=== PATIENT | female | born 1985 | race Caucasian/White ===

== ENCOUNTER → 2020-11-23 07:54 | Outpatient (BNVA) | payer OTHER, SELFPAY | PROVIDERS: PCP Family Medicine; Visit Provider Advanced Practice Midwife | DX: Z76.89 Persons encountering health services in other specified circumstances (principal) ==

== ENCOUNTER 2021-12-20 08:25 | Outpatient (REF) | payer OTHER, SELFPAY ==
[2021-12-27 19:56] LABS: HPV mRNA E6/E7 rflx Not Detected (Not Detected)
== END 2021-12-20 08:26 | disposition home or self-care (01) ==
LOC: HO.LAB 08:25
PROVIDERS: Visit Provider Advanced Practice Midwife
DX: Z12.4 Encounter for screening for malignant neoplasm of cervix (principal); Z11.51 Encounter for screening for human papillomavirus (HPV)
CPT/HCPCS: 87624; 88142

== ENCOUNTER 2022-01-03 10:46 | Outpatient (REF) | payer OTHER, SELFPAY ==
--- NOTE | ~2022-01-03 | MM_ITS ---
EXAMINATION: MM DIAGNOSTIC DIGITAL BREAST TOMOSYNTHESIS, BILATERAL US DIAGNOSTIC ULTRASOUND BREAST, BILATERAL CLINICAL INFORMATION: 36-year-old, no prior breast imaging. Asymptomatic. Clinical exam notes palpable areas right 6:00 and left 3:00. No known family history breast cancer. The lifetime risk of breast cancer based on the Tyrer-Cuzick Model is 10%. COMPARISON: None (current study represents initial baseline exam). TECHNIQUE: Digital breast tomosynthesis is performed in both the craniocaudal and mediolateral oblique views along with computer-aided detection (CAD). Synthesized 2D images are generated from the tomosynthesis. Ultrasound left breast is targeted to the outer quadrant. Ultrasound right breast is targeted to the lower quadrant. Skinner scale imaging and color Doppler are without and with harmonics. FINDINGS: The breasts are heterogeneously dense, which may obscure small masses (ACR BI-RADS breast composition Category c). There is fine fibronodular parenchymal pattern. There are no significant masses, abnormal calcifications, or other abnormalities. The axilla and skin contours are unremarkable. No skin thickening or coarsening of the Kiran's ligaments. Ultrasound left breast demonstrates a simple cyst 3:00 position 7 cm from nipple measuring approximately 1.0 x 0.5 cm. No additional findings left breast. Ultrasound right breast shows no cystic or solid mass or architectural abnormality. Results are discussed with the patient at time of visit. MM/MM tomosynthesis diagnostic BI IMPRESSION: 1. No mammographic evidence of malignancy. 2. Simple cyst left breast 3:00 position 1 cm. No ultrasound findings on right. ASSESSMENT: BI-RADS 2: Benign RECOMMENDATION: 1. Patient should be managed based on the clinical impression. If there is still clinically palpable concern, further evaluation may be considered with surgical consult. Decision to proceed with biopsy should be based on clinical grounds and degree of clinical concern. 2. Otherwise, routine annual screening mammography beginning age 40, or earlier as clinical risk factors warrant. This patient's information was entered into a reminder system with a target due date for their next mammogram.
== END 2022-01-03 10:47 | disposition home or self-care (01) ==
LOC: HO.MAMMO 10:46
PROVIDERS: PCP Family Medicine; Visit Provider Advanced Practice Midwife
DX: N63.15 Unspecified lump in the right breast, overlapping quadrants (principal); N63.25 Unspecified lump in the left breast, overlapping quadrants
CPT/HCPCS: 76642; 77062; 77066

== ENCOUNTER 2022-01-25 10:08 | Outpatient (REF) | payer OTHER, SELFPAY ==
[2022-01-25 11:43] LABS: Alanine Aminotransferase 12 U/L (0-31); Albumin Level 4.3 g/dL (3.5-5.0); Alkaline Phosphatase 69 U/L (39-117); Anion Gap 13 (12-20); Aspartate Amino Transferase 16 U/L (5-31); Bilirubin Total 0.7 mg/dL (0.0-1.0); Blood Urea Nitrogen 14 mg/dL (9-16); Calcium 9.6 mg/dL (8.4-10.2); Carbon Dioxide 28 mmol/L (22-29); Chloride 102 mmol/L (96-108); Cholesterol 242 mg/dL; Estimated Glomerular Filt Rate > 60; Glucose Random 88 mg/dL (60-115); HDL Cholesterol 75 mg/dL; LDL Cholesterol Calculated 152 mg/dl; Potassium 4.5 mmol/L (3.3-5.1); Sodium 138 mmol/L (135-145); Total Protein 7.5 g/dL (6.5-8.0); Triglycerides 78 mg/dL
[2022-01-25 12:43] LABS: Creatinine Urine 91.39 mg/dL; Microalbumin Urine < 5.0 mg/L
== END 2022-01-25 10:09 | disposition home or self-care (01) ==
LOC: HO.LAB 10:08
PROVIDERS: PCP Family Medicine; Visit Provider Family Medicine
DX: R03.0 Elevated blood-pressure reading, without diagnosis of hypertension (principal)
CPT/HCPCS: 36415; 80053; 80061; 82043

== ENCOUNTER 2022-02-08 14:59 | Outpatient (REF) | payer OTHER, SELFPAY ==
[2022-02-08 15:27] LABS: COVID-19 Test Negative (Negative); IDNOW Serial# 08D9AD1C
== END 2022-02-08 15:00 | disposition home or self-care (01) ==
LOC: HO.LAB 14:59
PROVIDERS: PCP Family Medicine; Visit Provider Internal Medicine
DX: Z20.822 Contact with and (suspected) exposure to COVID-19 (principal)
CPT/HCPCS: 87635; C9803

== ENCOUNTER 2022-02-12 11:14 | Outpatient (REF) | payer OTHER, SELFPAY ==
[2022-02-12 11:39] LABS: COVID-19 Test Positive (Negative)
== END 2022-02-12 11:15 | disposition home or self-care (01) ==
LOC: HO.LAB 11:14
PROVIDERS: Visit Provider Internal Medicine
DX: Z20.822 Contact with and (suspected) exposure to COVID-19 (principal)
CPT/HCPCS: 87635; C9803

== ENCOUNTER 2022-03-04 12:58 | Emergency (ER) | payer OTHER, SELFPAY ==
--- NOTE | 2022-03-04 | ECG_ITS ---
Test Reason : CHEST PAIN Blood Pressure : / mmHG Vent. Rate : 094 BPM Atrial Rate : 094 BPM P-R Int : 144 ms QRS Dur : 074 ms QT Int : 350 ms P-R-T Axes : 060 017 017 degrees QTc Int : 437 ms Normal sinus rhythm Normal ECG When compared with ECG of 11-OCT-2016 14:00, Vent. rate has increased BY 37 BPM Referred By: Generic ED Physician Electronically Signed By:SIDNEY RODRIGUEZ MD
--- NOTE | ~2022-03-04 | XR_ITS ---
EXAMINATION: XR CHEST CLINICAL INFORMATION: SOB, chest pain COMPARISON: None TECHNIQUE: 2 views of the chest were obtained. FINDINGS: No significant abnormality is noted involving the heart, lungs, mediastinum, bony thorax or soft tissues. XR/XR chest 2V IMPRESSION: Unremarkable chest examination.
[2022-03-04 14:15] VITALS: BP 150/98; PULSE 87; RESP 18; TEMP 36.6; O2SAT 100; BMI 25.0
--- NOTE | 2022-03-04 14:25 | ED_ITS ---
HPI - Chest Pain General Chief Complaint: Chest Pain Stated Complaint: sob,chest pain Time Seen by Provider: 03/04/22 14:04 Source: patient Mode of arrival: ambulatory Limitations: no limitations History of Present Illness HPI narrative: 37-year-old female with no significant medical problems who had COVID-[address] [facility] presents to the ER with ongoing chest pains, shortness of breath, nausea, lightheaded and dizziness. She reports when she had COVID she was home with extreme fatigue, shortness of breath, generally not feeling well. She has not fully recovered or felt better since. 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 She has been slowly trying to increase her stamina and been going for slow walks but 3 days ago when she was walking she had worsening chest pains and shortness of breath. She is anxious and tearful reporting concerns that she is never going to fully recover feel better from COVID. She reports she was vaccinated with 2 of the Pfizer vaccines. She is not vaccinated for influenza but has had no known sick contacts in the last couple of weeks. She denies any personal or family history of blood clots. She is not on control pills. MD complaint: chest pain and chest heaviness Onset (ago): week(s) Timing of current episode: episodic Prior episodes: Yes Onset: during exertion Pain location: substernal Severity: moderate Quality: aching and heaviness Relieving factors: rest Exacerbating factors: exertion and inspiration Context: recent illness Associated symptoms: nausea and dyspnea Treatment prior to arrival: none Risk Factors Coronary artery disease risk factors: none Related Data On Oral Contraceptives: No Home Medications Medication Instructions Recorded Confirmed lorazepam 0.5 mg tablet 0.5 mg PO BID PRN 11/23/20 12/20/21 Previous Rx's Medication Instructions Recorded etonogestrel 0.12 mg-ethinyl 1 vag ring VAGINAL Q4W #3 ea 12/20/21 estradiol 0.015 mg/24 hr vaginal ring (NuvaRing) fluconazole 150 mg tablet 150 mg PO ONCE 1 Days #1 tab 12/24/21 (Diflucan) albuterol sulfate 90 mcg/actuation 2 puff INHALATION QID PRN #6.7 g 03/04/22 aerosol inhaler (ProAir HFA) Allergies Allergy/AdvReac Type Severity Reaction Status Date / Time No Known Allergies Allergy Verified 12/20/21 08:29 Review of Systems Review of Systems: Constitutional: No Fever, No Chills ENT/Mouth: No sore throat, No Rhinorrhea, No Swallowing Difficulty Eyes: No Eye Pain, No Swelling, No Redness Cardiovascular: + Chest Pain, + SOB, No Orthopnea, No Edema Respiratory: No Cough, No Sputum, No Wheezing, + dyspnea Gastrointestinal: No Nausea, No Vomiting, No Diarrhea, No abdominal Pain, No Hematochezia, No Melena Genitourinary: No Dysuria, No Urinary Frequency, No Hematuria Musculoskeletal: No joint pain, + Myalgias Skin: No Skin Lesions, No rash Neuro: No Weakness, No Numbness, + Dizziness, + Headache Psych: + Anxiety/Panic, No Depression Heme/Lymph: No Bruising, No Lymphadenopathy Endocrine: No Polyuria, No Polydipsia PMFSH Past Medical History Attestation statement: The following information was validated with the patient. Medical History Allergic rhinitis Headache HTN (hypertension) Surgical History Hx of section Family History Family History Father HTN (hypertension) Mother HTN (hypertension) Hyperlipemia Maternal Grandmother CVD (cardiovascular disease) Maternal Grandfather Stroke Social History Social History Alcohol intake: current Alcohol intake frequency: holidays/special occasions only Patient Tobacco Use Status: Never used Tobacco Use of substances other than those prescribed or required for medical reasons: No Advance Directives: No Advance Directives Information Provided: No Patient : No Gender identity: Female Physical Exam Vital Signs: Vital Signs: Last Vital Signs Temp 98 F 03/04/22 14:15 Pulse 87 03/04/22 14:15 Resp 18 03/04/22 14:15 BP 150/98 H 03/04/22 14:15 Pulse Ox 100 03/04/22 14:15 BMI result Body Mass Index 25.0 Appearance: Alert. Oriented X3. Tearful and anxious. Eyes: Pupils equal, round and reactive to light. ENT: Pharynx normal. Neck: Normal inspection. Neck supple. CVS: Tachycardic, regular rhythm. Pulses normal. Respiratory: No respiratory distress. Breath sounds normal. Abdomen: Soft and nontender. +BS x4 Skin: Skin warm and dry. Normal skin color. Normal skin turgor. No rashes. Extremities: No lower extremity edema. No calf tenderness. Neuro: Oriented X 3. No motor deficit. No sensory deficit. Grossly normal, nonfocal Course Course Course Narrative: 37-year-old female with history of recent COVID-19 at the end of January who presents to the ER with ongoing shortness of breath and chest pains. HR 90-100 but she is anxious and tearful. HR 80 when more calm. Concern for possible PE although only risk factor is prior COVID. Will check D-dimer, EKG, troponin, and two view chest x-ray. Her lungs are clear and and her oxygen saturation is 100%. Reevaluation(s) Reevaluation #1: DDIMER negative, Troponin negative, normal BNP. Doubt PE. Case d/w Dr. Connor who also agrees very low probability of PE and will hold off on CTA at this time. CXR is clear. Will give a dose of toradol and reassess. Reevaluation #2: Pain is the same. SpO2 100%, HR 80's. At this time patient is stable for discharge from the ED. She would like to be referred to Cardiology for possible stress test. She will also follow up with her PCP. Return precautions discussed. MDM - Chest Pain Medical Records Data Attestation: I reviewed the patient's medical records. Lab Data Attestation: I reviewed the patient's lab results. Result diagrams: 03/04/22 14:47 03/04/22 15:49 Labs: Lab Results 03/04/22 03/04/22 03/04/22 Range/Units 14:34 14:47 14:47 WBC 9.6 (4.8-10.8) X10*3/uL RBC 4.28 (4.20-5.50) X10*6/uL Hgb 12.6 (12.0-16.0) g/dl Hct 38.3 (37.0-47.0) % MCV 89.5 (80.0-98.0) fL MCH 29.4 (27.0-33.0) pg MCHC 32.9 (31.0-35.0) g/dl RDW 11.7 (11.0-16.0) % Plt Count 168 (160-400) X10*3/uL MPV 11.0 (9.4-12.3) fL Immature Gran % (Auto) 0.3 (0.0-0.4) % Neut % (Auto) 81.4 H (45-73) % Lymph % (Auto) 12.4 L (20-40) % Hendricks % (Auto) 3.5 (2-11) % Eos % (Auto) 2.3 (0-4) % Baso % (Auto) 0.1 (0-2) % Lymph # (Auto) 1.2 (1.2-4.9) X10*3/uL Hendricks # (Auto) 0.3 (0.1-1.2) X10*3/uL Eos # (Auto) 0.2 (0.0-0.4) X10*3/uL Baso # (Auto) 0.0 (0.0-0.2) X10*3/uL Abs Immat Gran (auto) 0.03 (0.00-0.03) X10*3/uL Absolute Neuts (auto) 7.8 (2.0-8.3) x10*3/uL Absolute Nucleated RBC 0.000 (0.0-0.012) X10*3/uL Nucleated RBC % (auto) 0.0 (0.0-0.2) /100WBC ESR 5 (0-20) MM/HR PT (9.9-13.0) SEC INR (0.9-1.1) APTT (24.1-38.0) SEC D-Dimer High Sensitivty NG/ML Sodium (135-145) mmol/L Potassium (3.3-5.1) mmol/L Chloride (96-108) mmol/L Carbon Dioxide (22-29) mmol/L Anion Gap (12-20) BUN (9-16) mg/dL Creatinine (0.5-1.4) mg/dL Estim Creat Clear Calc Estimated GFR Random Glucose (60-115) mg/dL Calcium (8.4-10.2) mg/dL Magnesium (1.6-2.6) mg/dL Total Bilirubin (0.0-1.0) mg/dL Direct Bilirubin (0.0-0.5) mg/dL AST (5-31) U/L ALT (0-31) U/L Alkaline Phosphatase (39-117) U/L Troponin I High Sens (<3.5-17.0) ng/L C-Reactive Protein (< or = 0.50) mg/dL B-Natriuretic Peptide (<100) pg/mL Total Protein (6.5-8.0) g/dL Albumin (3.5-5.0) g/dL Influenza Type A (AUDELIA) Negative (Negative) Influenza Type B (AUDELIA) Negative (Negative) Influenza A & B Note See Note 03/04/22 03/04/22 03/04/22 Range/Units 14:47 14:47 14:47 WBC (4.8-10.8) X10*3/uL RBC (4.20-5.50) X10*6/uL Hgb (12.0-16.0) g/dl Hct (37.0-47.0) % MCV (80.0-98.0) fL MCH (27.0-33.0) pg MCHC (31.0-35.0) g/dl RDW (11.0-16.0) % Plt Count (160-400) X10*3/uL MPV (9.4-12.3) fL Immature Gran % (Auto) (0.0-0.4) % Neut % (Auto) (45-73) % Lymph % (Auto) (20-40) % Hendricks % (Auto) (2-11) % Eos % (Auto) (0-4) % Baso % (Auto) (0-2) % Lymph # (Auto) (1.2-4.9) X10*3/uL Hendricks # (Auto) (0.1-1.2) X10*3/uL Eos # (Auto) (0.0-0.4) X10*3/uL Baso # (Auto) (0.0-0.2) X10*3/uL Abs Immat Gran (auto) (0.00-0.03) X10*3/uL Absolute Neuts (auto) (2.0-8.3) x10*3/uL Absolute Nucleated RBC (0.0-0.012) X10*3/uL Nucleated RBC % (auto) (0.0-0.2) /100WBC ESR (0-20) MM/HR PT 10.8 (9.9-13.0) SEC INR 1.0 (0.9-1.1) APTT 30.1 (24.1-38.0) SEC D-Dimer High Sensitivty < 150 NG/ML Sodium (135-145) mmol/L Potassium (3.3-5.1) mmol/L Chloride (96-108) mmol/L Carbon Dioxide (22-29) mmol/L Anion Gap (12-20) BUN (9-16) mg/dL Creatinine (0.5-1.4) mg/dL Estim Creat Clear Calc Estimated GFR Random Glucose (60-115) mg/dL Calcium (8.4-10.2) mg/dL Magnesium (1.6-2.6) mg/dL Total Bilirubin (0.0-1.0) mg/dL Direct Bilirubin (0.0-0.5) mg/dL AST (5-31) U/L ALT (0-31) U/L Alkaline Phosphatase (39-117) U/L Troponin I High Sens < 3.5 (<3.5-17.0) ng/L C-Reactive Protein (< or = 0.50) mg/dL B-Natriuretic Peptide 47 (<100) pg/mL Total Protein (6.5-8.0) g/dL Albumin (3.5-5.0) g/dL Influenza Type A (AUDELIA) (Negative) Influenza Type B (AUDELIA) (Negative) Influenza A & B Note 03/04/22 Range/Units 15:49 WBC (4.8-10.8) X10*3/uL RBC (4.20-5.50) X10*6/uL Hgb (12.0-16.0) g/dl Hct (37.0-47.0) % MCV (80.0-98.0) fL MCH (27.0-33.0) pg MCHC (31.0-35.0) g/dl RDW (11.0-16.0) % Plt Count (160-400) X10*3/uL MPV (9.4-12.3) fL Immature Gran % (Auto) (0.0-0.4) % Neut % (Auto) (45-73) % Lymph % (Auto) (20-40) % Hendricks % (Auto) (2-11) % Eos % (Auto) (0-4) % Baso % (Auto) (0-2) % Lymph # (Auto) (1.2-4.9) X10*3/uL Hendricks # (Auto) (0.1-1.2) X10*3/uL Eos # (Auto) (0.0-0.4) X10*3/uL Baso # (Auto) (0.0-0.2) X10*3/uL Abs Immat Gran (auto) (0.00-0.03) X10*3/uL Absolute Neuts (auto) (2.0-8.3) x10*3/uL Absolute Nucleated RBC (0.0-0.012) X10*3/uL Nucleated RBC % (auto) (0.0-0.2) /100WBC ESR (0-20) MM/HR PT (9.9-13.0) SEC INR (0.9-1.1) APTT (24.1-38.0) SEC D-Dimer High Sensitivty NG/ML Sodium 138 (135-145) mmol/L Potassium 4.0 (3.3-5.1) mmol/L Chloride 107 (96-108) mmol/L Carbon Dioxide 21 L (22-29) mmol/L Anion Gap 14 (12-20) BUN 17 H (9-16) mg/dL Creatinine 0.69 (0.5-1.4) mg/dL Estim Creat Clear Calc 107.4 Estimated GFR > 60 Random Glucose 71 (60-115) mg/dL Calcium 8.7 D (8.4-10.2) mg/dL Magnesium 1.5 L (1.6-2.6) mg/dL Total Bilirubin 0.6 (0.0-1.0) mg/dL Direct Bilirubin 0.2 (0.0-0.5) mg/dL AST 12 (5-31) U/L ALT 10 (0-31) U/L Alkaline Phosphatase 63 (39-117) U/L Troponin I High Sens (<3.5-17.0) ng/L C-Reactive Protein 0.54 H (< or = 0.50) mg/dL B-Natriuretic Peptide (<100) pg/mL Total Protein 6.5 (6.5-8.0) g/dL Albumin 3.8 (3.5-5.0) g/dL Influenza Type A (AUDELIA) (Negative) Influenza Type B (AUDELIA) (Negative) Influenza A & B Note ECG Data ECG #1: Attestation: I personally reviewed and interpreted this ECG as follows: ECG interpretation date: 03/04/22 ECG interpretation time: 14:29 Prior ECG tracings: available for review Interpretation: Normal sinus rhythm, heart rate 94 beats per minute, normal NH interval, normal QTC, normal EKG. Critical Care Time Critical Care Time Critical Care Time: No Discharge Plan Discharge Clinical Impression: Atypical chest pain, Persistent shortness of breath after COVID-19 Patient Disposition: Home, Self-Care Additional Instructions: Your lab workup today was normal. You are negative for Influenza. Your EKG was normal. For cardiac enzyme was undetectable, making any cardiac cause of your chest pain extremely unlikely. Your chest x-ray was clear. Use the prescribed inhaler as directed before exercise to see if this helps with your breathing. Recommend continuing to increase your aerobic exercise and physical activity slowly and only as tolerated. Recommend following up with your primary care provider for further evaluation treatment. If you develop new or worsening symptoms call 911 or come back to the ER for further evaluation. Prescriptions: New albuterol sulfate [ProAir HFA] 90 mcg/actuation HFA aerosol inhaler 2 puff inhalation QID PRN (Reason: shortness of breath or wheezing) Qty: 6.7 0RF No Action fluconazole [Diflucan] 150 mg tablet 150 mg PO ONCE 1 Days Qty: 1 0RF lorazepam 0.5 mg tablet 0.5 mg PO BID PRN (Reason: headache) 0RF etonogestrel-ethinyl estradiol [NuvaRing] 0.12-0.015 mg/24 hr ring 1 vag ring vaginal Q4W Qty: 3 4RF Rx Instructions: leave in place for 3 weeks of a 4-week cycle. Referrals: Teddy Sotelo MD [Physician] - 1 week (Chest pain & shortness of breath s/p COVID)
[2022-03-04 14:54] LABS: MANUAL DIFF FLAG NO
[2022-03-04 14:56] LABS: Basophils Percent Auto 0.1 % (0-2); Eosinophils Absolute Auto 0.2 X10*3/uL (0.0-0.4); Eosinophils Percent Auto 2.3 % (0-4); Hematocrit 38.3 % (37.0-47.0); Hemoglobin 12.6 g/dl (12.0-16.0); Imm Gran Abs Auto 0.03 X10*3/uL (0.00-0.03); Imm Gran Pct Auto 0.3 % (0.0-0.4); Lymphocytes Absolute Auto 1.2 X10*3/uL (1.2-4.9); Lymphocytes Percent Auto 12.4 % (20-40); Mean Corpuscular HGB Conc 32.9 g/dl (31.0-35.0); Mean Corpuscular Hemoglobin 29.4 pg (27.0-33.0); Mean Corpuscular Volume 89.5 fL (80.0-98.0); Monocytes Absolute Auto 0.3 X10*3/uL (0.1-1.2); Monocytes Percent Auto 3.5 % (2-11); Neutrophils Absolute Auto 7.8 x10*3/uL (2.0-8.3); Neutrophils Percent Auto 81.4 % (45-73); Platelet Count 168 X10*3/uL (160-400); Red Blood Count 4.28 X10*6/uL (4.20-5.50); Red Cell Distribution Width 11.7 % (11.0-16.0); White Blood Count 9.6 X10*3/uL (4.8-10.8)
[2022-03-04 14:58] LABS: Influenza A Negative (Negative); Influenza B2 Negative (Negative)
[2022-03-04 15:05] LABS: Prothrombin Time 10.8 SEC (9.9-13.0)
[2022-03-04 15:08] LABS: D Dimer High Sensitivity < 150 NG/ML; Partial Thromboplastin Time 30.1 SEC (24.1-38.0)
[2022-03-04 15:17] LABS: B Type Natriuretic Peptide 47 pg/mL (<100); Troponin-I High Sensitivity < 3.5 ng/L (<3.5-17.0)
[2022-03-04 15:35] LABS: Erythrocyte Sedimentation Rate 5 MM/HR (0-20)
[2022-03-04 16:14] LABS: Alanine Aminotransferase 10 U/L (0-31); Albumin Level 3.8 g/dL (3.5-5.0); Alkaline Phosphatase 63 U/L (39-117); Anion Gap 14 (12-20); Aspartate Amino Transferase 12 U/L (5-31); Bilirubin Direct 0.2 mg/dL (0.0-0.5); Bilirubin Total 0.6 mg/dL (0.0-1.0); Blood Urea Nitrogen 17 mg/dL (9-16); C Reactive Protein 0.54 mg/dL (< or = 0.50); Calcium 8.7 mg/dL (8.4-10.2); Carbon Dioxide 21 mmol/L (22-29); Chloride 107 mmol/L (96-108); Creatinine Clr Calc Pharmacy 107.4; Estimated Glomerular Filt Rate > 60; Glucose Random 71 mg/dL (60-115); Magnesium 1.5 mg/dL (1.6-2.6); Sodium 138 mmol/L (135-145); Total Protein 6.5 g/dL (6.5-8.0)
[2022-03-04] MEDS: Ketorolac Tromethamine 30 MG/ML VIAL IVPUSH (16:43)
[2022-03-04 17:19] VITALS: BP 141/88; PULSE 90; RESP 14; TEMP 37.1; O2SAT 99
== END 2022-03-04 17:42 | disposition home or self-care (01) ==
PROVIDERS: Physician Assistant; Emergency Provider Emergency Medicine; PCP Family Medicine
DX: R07.89 Other chest pain (principal); R06.02 Shortness of breath; R42 Dizziness and giddiness; F41.9 Anxiety disorder, unspecified; Z79.899 Other long term (current) drug therapy
CPT/HCPCS: 36415; 71046; 80048; 80076; 83735; 83880; 84484; 85025; 85379; 85610; 85652; 85730; 86140; 87502; 93005; 96374; 99284; J1885

== ENCOUNTER 2022-03-09 08:46 | Emergency (ER) | payer OTHER, SELFPAY ==
--- NOTE | 2022-03-09 | ECG_ITS ---
Test Reason : CHES PAIN Blood Pressure : / mmHG Vent. Rate : 081 BPM Atrial Rate : 081 BPM P-R Int : 106 ms QRS Dur : 068 ms QT Int : 354 ms P-R-T Axes : 016 028 024 degrees QTc Int : 411 ms Sinus rhythm with short W[place] Septal infarct , age undetermined Abnormal ECG When compared with ECG of 04-MAR-2022 13:15, No significant change was found Referred By: Generic ED Physician Electronically Signed By:SIDNEY RODRIGUEZ MD
--- NOTE | ~2022-03-09 | CT_ITS ---
EXAMINATION: CT ANGIOGRAM OF THE CHEST WITH AND WITHOUT CONTRAST (CT PULMONARY ANGIOGRAM FOR PE) CLINICAL INFORMATION: Reason for Exam r/o pe COMPARISON: Previous chest x-ray from earlier this month TECHNIQUE: Prior to contrast administration, noncontrast localization images were obtained. Subsequently, multidetector volumetric imaging was performed from the thoracic inlet to below the diaphragms following the administration of 65 mL Omnipaque 350 intravenous contrast. No contrast reaction reported Sagittal, coronal, and MIP oblique sagittal reformatted images were obtained on the CT workstation, uploaded to PACS, and reviewed. This CT examination was performed using dose optimization techniques as appropriate, variously including the following: *Automated exposure control *Adjustment of mA and/or kV according to patient size (this includes techniques or standardized protocols for targeted exams where dose is matched to indication/reason for exam; i.e. extremities or head) *Use of iterative reconstruction technique Total exam dose-length product 295 mGy-cm FINDINGS: QUALITY OF STUDY/CONTRAST BOLUS: Satisfactory. PULMONARY ARTERIES: No central or segmental pulmonary emboli. THORACIC AORTA: No aneurysm or dissection. LUNG: There is question of a 2 mm left lower lobe nodule axial image 252 series 7. The lungs are otherwise clear. PLEURA: No pleural effusion or pneumothorax. MEDIASTINUM: Normal heart size. No pericardial effusion. No hilar or mediastinal lymphadenopathy. No evidence of septal bowing or right heart strain. CHEST WALL/AXILLA: No axillary or internal mammary lymphadenopathy. OSSEOUS STRUCTURES: No acute or suspicious osseous abnormality. UPPER ABDOMEN: Unremarkable. No reflux of contrast into the hepatic veins to suggest elevated right heart pressures. CT/CT angio chest PE protocol IMPRESSION: No evidence of pulmonary embolism. Question 2 mm left lower lobe pulmonary nodule. VTE: negative
[2022-03-09 08:51] VITALS: BP 129/94; PULSE 89; RESP 18; TEMP 36.2; O2SAT 100; BMI 25.0
[2022-03-09 09:20] VITALS: BP 138/87; PULSE 82; RESP 16; TEMP 37.2; O2SAT 99
--- NOTE | 2022-03-09 09:24 | ED.CHESTPAIN ---
HPI - Chest Pain General Chief Complaint: Chest Pain Stated Complaint: Chest pain/SOB Time Seen by Provider: 03/09/22 09:24 Source: patient Mode of arrival: ambulatory Limitations: no limitations History of Present Illness HPI narrative: this is 37 years old female presented to the ED with chest pain and shortness of breath, she was evaluated on Friday with negative workup. She states this seems that she had the COVID and a margin she has been complaining on chest pain like a pressure in feeling short of breath denies any fever chills exertional symptoms. MD complaint: chest pain Onset (ago): week(s) (4) Timing of current episode: constant Onset: during rest Pain location: substernal Pain radiation: none Severity: moderate Quality: heaviness Relieving factors: nothing Exacerbating factors: nothing Risk Factors Coronary artery disease risk factors: none Thoracic aortic dissection risk factors: none Related Data Home Medications Medication Instructions Recorded Confirmed lorazepam 0.5 mg tablet 0.5 mg PO BID PRN 11/23/20 12/20/21 Previous Rx's Medication Instructions Recorded etonogestrel 0.12 mg-ethinyl 1 vag ring VAGINAL Q4W #3 ea 12/20/21 estradiol 0.015 mg/24 hr vaginal ring (NuvaRing) fluconazole 150 mg tablet 150 mg PO ONCE 1 Days #1 tab 12/24/21 (Diflucan) albuterol sulfate 90 mcg/actuation 2 puff INHALATION QID PRN #6.7 g 03/04/22 aerosol inhaler (ProAir HFA) Allergies Allergy/AdvReac Type Severity Reaction Status Date / Time No Known Allergies Allergy Verified 12/20/21 08:29 Review of Systems Review of Systems: Yes all other systems are reviewed and are negative Constitutional: Constitutional: Reports no additional constitutional complaints Eyes: Eyes: Reports no additional eye complaints ENT: Reports system reviewed and no additional complaints, except as documented Cardiovascular: Cardiovascular: Reports no additional cardiovascular complaints Respiratory: Respiratory: Reports no additional respiratory complaints Gastrointestinal: Gastrointestinal: Reports no additional gastrointestinal complaints Musculoskeletal: Musculoskeletal: Reports no additional musculoskeletal complaints PMFSH Past Medical History Medical History Allergic rhinitis Headache HTN (hypertension) Surgical History Hx of section Family History Family History Father HTN (hypertension) Mother HTN (hypertension) Hyperlipemia Maternal Grandmother CVD (cardiovascular disease) Maternal Grandfather Stroke Social History Social History Alcohol intake: current Alcohol intake frequency: holidays/special occasions only Patient Tobacco Use Status: Never used Tobacco Advance Directives: No Advance Directives Information Provided: Yes Gender identity: Female Physical Exam Vital Signs: Vital Signs: Last Vital Signs Temp 98.6 F 03/09/22 12:09 Pulse 72 03/09/22 12:09 Resp 15 03/09/22 12:09 BP 132/91 H 03/09/22 12:09 Pulse Ox 100 03/09/22 12:09 BMI result Body Mass Index 25.0 Const: General: cooperative and no acute distress Nutritional Appearance: average body habitus Orientation/consciousness: patient oriented x3 Limitations: no limitations HEENT: Head: Yes normal to inspection Ears: hearing grossly normal bilaterally General nose exam: Normal external nose present Face and sinus: Yes normal facial exam Mouth: Normal oral and palatal mucosa present Teeth and gingiva: dentition normal Throat: Yes posterior oropharynx normal Neck: Neck: Yes normal visual inspection and Yes full ROM Thyroid: Thyroid normal Chest: Chest palpation & inspection: normal inspection of the chest Resp: Effort & Inspection: normal respiratory effort and able to speak in complete sentences Auscultation: clear to auscultation bilaterally Percussion: percussion normal Cardio: Jugular venous distension: no JVD Rate: regular rate Rhythm: regular rhythm GI: Inspection: Yes normal to inspection Auscultation: normal bowel sounds Skin: General skin exam: no rashes or lesions noted Neuro: General: patient oriented x3 Cranial nerves: Yes CN's II-XII intact bilaterally Course Reevaluation(s) Reevaluation #1: she is feeling better at this time , high sensitive troponin is negative, CT chest is negative. I expained this to the patient and , at this time will discharge the patient, we follow-up with primary care physician MDM - Chest Pain MDM Narrative Medical decision making narrative: This is a 37 years old presented with persistent chest pain shortness of breath she was already of a within the Friday, will repeat EKG labs will do a chest CT today Lab Data Result diagrams: 03/09/22 09:48 03/09/22 09:48 Labs: Lab Results 03/09/22 03/09/22 03/09/22 Range/Units 09:48 09:48 09:48 WBC 4.3 L (4.8-10.8) X10*3/uL RBC 4.09 L (4.20-5.50) X10*6/uL Hgb 11.9 L (12.0-16.0) g/dl Hct 35.8 L (37.0-47.0) % MCV 87.5 (80.0-98.0) fL MCH 29.1 (27.0-33.0) pg MCHC 33.2 (31.0-35.0) g/dl RDW 11.6 (11.0-16.0) % Plt Count 176 (160-400) X10*3/uL MPV 10.3 (9.4-12.3) fL Immature Gran % (Auto) 0.2 (0.0-0.4) % Neut % (Auto) 35.0 L (45-73) % Lymph % (Auto) 52.2 H (20-40) % [place] % (Auto) 8.7 (2-11) % Eos % (Auto) 3.7 (0-4) % Baso % (Auto) 0.2 (0-2) % Lymph # (Auto) 2.2 (1.2-4.9) X10*3/uL [place] # (Auto) 0.4 (0.1-1.2) X10*3/uL Eos # (Auto) 0.2 (0.0-0.4) X10*3/uL Baso # (Auto) 0.0 (0.0-0.2) X10*3/uL Abs Immat Gran (auto) 0.01 (0.00-0.03) X10*3/uL Absolute Neuts (auto) 1.5 L (2.0-8.3) x10*3/uL Absolute Nucleated RBC 0.000 (0.0-0.012) X10*3/uL Nucleated RBC % (auto) 0.0 (0.0-0.2) /100WBC Sodium 137 (135-145) mmol/L Potassium 4.6 (3.3-5.1) mmol/L Chloride 107 (96-108) mmol/L Carbon Dioxide 25 (22-29) mmol/L Anion Gap 10 L (12-20) BUN 15 (9-16) mg/dL Creatinine 0.77 (0.5-1.4) mg/dL Estim Creat Clear Calc 96.3 Estimated GFR > 60 Random Glucose 83 (60-115) mg/dL Calcium 8.5 (8.4-10.2) mg/dL Total Bilirubin 0.5 (0.0-1.0) mg/dL AST 17 D (5-31) U/L ALT 14 (0-31) U/L Alkaline Phosphatase 60 (39-117) U/L Troponin I High Sens < 3.5 (<3.5-17.0) ng/L Total Protein 6.4 L (6.5-8.0) g/dL Albumin 3.6 (3.5-5.0) g/dL Beta HCG, Quant < 2 mIU/mL Imaging Data CT scan - chest: My impression: central or segmental pulmonary emboli.? THORACIC AORTA: No aneurysm or dissection. LUNG: There is question of a 2 mm left lower lobe nodule axial image 252 series 7. The lungs are otherwise clear. PLEURA: No pleural effusion or pneumothorax. MEDIASTINUM: Normal heart size.? No pericardial effusion.? No hilar or mediastinal lymphadenopathy.? No evidence of septal bowing or right heart strain. CHEST WALL/AXILLA: No axillary or internal mammary lymphadenopathy. OSSEOUS STRUCTURES: No acute or suspicious osseous abnormality.? UPPER ABDOMEN: Unremarkable.? No reflux of contrast into the hepatic veins to suggest elevated right heart pressures. CT/CT angio chest PE protocol IMPRESSION: No evidence of pulmonary embolism. Question 2 mm left lower lobe pulmonary nodule. ? VTE: negative Dictated By: Vivian España MD Signed By: <Electronically signed by Vivian España MD in OV> 03/09/22 1217 Discharge Plan Discharge Clinical Impression: Chest pain Patient Disposition: Home, Self-Care Instructions: Chest Pain (DC) Additional Instructions: please follow-up with primary care physician occult today make an appointment return if you worse Prescriptions: No Action fluconazole [Diflucan] 150 mg tablet 150 mg PO ONCE 1 Days Qty: 1 0RF albuterol sulfate [ProAir HFA] 90 mcg/actuation HFA aerosol inhaler 2 puff inhalation QID PRN (Reason: shortness of breath or wheezing) Qty: 6.7 0RF lorazepam 0.5 mg tablet 0.5 mg PO BID PRN (Reason: headache) 0RF etonogestrel-ethinyl estradiol [NuvaRing] 0.12-0.015 mg/24 hr ring 1 vag ring vaginal Q4W Qty: 3 4RF Rx Instructions: leave in place for 3 weeks of a 4-week cycle. Referrals: Iglesia Tovar DO [Primary Care Provider] - 03/11/22 Interventions: ED Discharge Assessment Last Done: 03/09/22 12:51 Discharge Date/Time: 03/09/22 12:52
[2022-03-09 09:53] LABS: MANUAL DIFF FLAG NO
[2022-03-09 09:54] LABS: Basophils Percent Auto 0.2 % (0-2); Eosinophils Absolute Auto 0.2 X10*3/uL (0.0-0.4); Eosinophils Percent Auto 3.7 % (0-4); Hematocrit 35.8 % (37.0-47.0); Hemoglobin 11.9 g/dl (12.0-16.0); Imm Gran Abs Auto 0.01 X10*3/uL (0.00-0.03); Imm Gran Pct Auto 0.2 % (0.0-0.4); Lymphocytes Absolute Auto 2.2 X10*3/uL (1.2-4.9); Lymphocytes Percent Auto 52.2 % (20-40); Mean Corpuscular HGB Conc 33.2 g/dl (31.0-35.0); Mean Corpuscular Hemoglobin 29.1 pg (27.0-33.0); Mean Corpuscular Volume 87.5 fL (80.0-98.0); Mean Platelet Volume 10.3 fL (9.4-12.3); Monocytes Absolute Auto 0.4 X10*3/uL (0.1-1.2); Monocytes Percent Auto 8.7 % (2-11); Neutrophils Absolute Auto 1.5 x10*3/uL (2.0-8.3); Platelet Count 176 X10*3/uL (160-400); Red Blood Count 4.09 X10*6/uL (4.20-5.50); Red Cell Distribution Width 11.6 % (11.0-16.0); White Blood Count 4.3 X10*3/uL (4.8-10.8)
[2022-03-09 10:09] LABS: Alanine Aminotransferase 14 U/L (0-31); Albumin Level 3.6 g/dL (3.5-5.0); Alkaline Phosphatase 60 U/L (39-117); Anion Gap 10 (12-20); Aspartate Amino Transferase 17 U/L (5-31); Bilirubin Total 0.5 mg/dL (0.0-1.0); Blood Urea Nitrogen 15 mg/dL (9-16); Calcium 8.5 mg/dL (8.4-10.2); Carbon Dioxide 25 mmol/L (22-29); Chloride 107 mmol/L (96-108); Creatinine Clr Calc Pharmacy 96.3; Estimated Glomerular Filt Rate > 60; Glucose Random 83 mg/dL (60-115); Potassium 4.6 mmol/L (3.3-5.1); Sodium 137 mmol/L (135-145); Total Protein 6.4 g/dL (6.5-8.0)
[2022-03-09 10:15] LABS: Troponin-I High Sensitivity < 3.5 ng/L (<3.5-17.0)
[2022-03-09 10:16] LABS: HCG Quantitative < 2 mIU/mL
[2022-03-09] MEDS: iohexoL 350 MG/ML 100 ML INFUS..BTL IV (11:07)
[2022-03-09 12:09] VITALS: BP 132/91; PULSE 72; RESP 15; TEMP 37; O2SAT 100
== END 2022-03-09 12:52 | disposition home or self-care (01) ==
PROVIDERS: Emergency Provider Emergency Medicine; PCP Family Medicine
DX: R07.89 Other chest pain (principal); R06.02 Shortness of breath; Z79.899 Other long term (current) drug therapy
CPT/HCPCS: 36415; 71275; 80053; 84484; 84702; 85025; 93005; 99284; 99285; Q9967

== ENCOUNTER → 2022-03-19 14:54 | Outpatient (BNVA) | payer OTHER, SELFPAY | PROVIDERS: PCP Family Medicine; Referring Provider Family Medicine; Visit Provider Nurse Practitioner Family | DX: Z13.89 Encounter for screening for other disorder (principal) ==

== ENCOUNTER → 2022-03-20 12:54 | Outpatient (REF) | payer OTHER, SELFPAY | LOC: HO.CARD 12:54 | PROVIDERS: PCP Family Medicine; Visit Provider Nurse Practitioner Family | DX: Z13.89 Encounter for screening for other disorder (principal) ==

== ENCOUNTER → 2022-03-22 08:50 | Outpatient (REF) | payer OTHER, SELFPAY ==
--- NOTE | 2022-03-20 12:58 | CA_ITS ---
Transthoracic Echocardiogram Patient (Last, First, Middle): Melba Quevedo D Gender: Female Date of : 1985 Age: 37 Procedure Date: 03/20/2022 Procedure Type: Transthoracic Echocardiogram Location: OP Height: 170.18 cm Weight: 72.58 kg BSA: 1.84 m2 Heart Rate: bpm BP: 116 / 80 mmHg Scroll Assembler: SUJATHA Richter MD: Le Dove CREATIVE LEADBlairC Lacquer Mixer: Teddy Sotelo MD Symptoms: R06.02 - Shortness of breath Study Quality: Good ECG Rhythm: Sinus Conclusions: - Essentially normal study Findings Left Ventricle Normal left ventricular size, thickness, and systolic function. The visually estimated ejection fraction is between 60-65%. Diastolic function is normal for age. Right Ventricle Normal right ventricular cavity size and systolic function. Atria Both atria are normal in size. Interatrial shunt cannot be excluded. Aortic Valve Normal aortic valve structure and function. There is no aortic valve stenosis. There is no aortic valve regurgitation. Mitral Valve Normal mitral valve structure and function. There is trace mitral valve regurgitation. There is no mitral valve stenosis. Pulmonic Valve The pulmonic valve was not well visualized. Tricuspid Valve Normal tricuspid valve structure. There is trace tricuspid valve regurgitation. The right ventricular systolic pressure is normal. The right ventricular systolic pressure is 20 mmHg. Normal right atrial pressure. There is no evidence of pulmonary hypertension. Great Vessels All visible segments of the aorta are normal in size. The pulmonary artery was not well visualized. Venous The inferior vena cava is normal in size and collapses greater than 50% with inspiration. Pericardium/Pleural There is no evidence of pericardial effusion. Recommendations, Care & Conclusions Recommend contrast study to evaluate intracardiac shunting. Measurements 2D Linear Measurements IVSd: 1.02 0.6-0.9/0.6-1.0 cm LVIDd: 4.58 3.9-5.3/4.2-5.9 cm LVIDd Index: 2.49 2.4-3.2/2.2-3.1 cm/m2 LVIDs: 3.23 2.0-3.6 cm LVPWd: 1.02 0.7-1.1 cm LA Diam: 3.00 2.7-3.8/3.0-4.0 cm LAIDs Index: 1.63 1.5-2.3 cm/m2 LV Mass: 201.81 67-162/88-224 g LV Mass Index: 109.68 43-95/49-115 g/m2 LVOT Diam: 2.20 3.0+(-)1.3 cm 2D Systolic Function EF 4C: 57.70 >55% EF 2C: 64.80 >55% EF BiP: 61.30 >55% Mitral Valve MV Pk E: 0.95 MV PK A: 0.59 MV Decel Time: 191.00 E/A: 1.60 E'Lateral: 12.30 E'Medial: 8.92 E/E' Med: 10.60 E/E' Lat: 7.70 PHT: 56.00 MVA PHT: 3.93 Decel Gilliam: 4.96 Aortic Valve AoV Pk Shemar: 1.59 AoV Mn Shemar: 1.17 AoV VTI: 0.32 AoV Pk Grad: 10.00 Aov Mn Grad: 6.00 RAJEEV Cont.VTI: 2.31 LVOT LVOT Pk Shemar: 1.04 LVOT Mn Shemar: 0.64 LVOT VTI: 0.20 LVOT Pk Grad: 4.00 LVOT Mn Grad: 2.00 LVOT Diam: 2.20 LVOT Area: 3.80 Diastolic Function MV Pk E: 0.95 MV Pk A: 0.59 E/A: 1.60 E'Medial: 8.92 E/E' Med: 10.60 E' Laterial: 12.30 E/E' Lat: 7.70 Right Ventricle TAPSE (mm): 23.50 TVS' Shemar: 10.70 Tricuspid Valve TR Pk Shemar: 2.06 TR Pk Grad: 17.00 RA Press: 3.00 RVSP: 20.00 Great Vessels Aorta Sinus of Valsalva: 3.21 2.0-3.[address] Ridge: 2.82 1.7-3.4 cm Ao Asc: 3.60 2.1-3.4 cm Ao Arch: 3.10 Updated in Other Vendor System with Status of Final Teddy Sotelo MD electronically signed on 03/21/2022 5:02:45 PM with status of Final
--- NOTE | 2022-03-22 08:53 | CA_ITS ---
Acquisition Time: 2022-03-22 09:05:07 Total Exercise Time: 00:05:58 Test Indications: Chest Pain, SOB Medications: Protocol: DELMA Max HR: 153 BPM 84% of Pred: 182 BPM Max BP: 172/078 mmHG Max Work Load: 7.0 METS Exercise stress test with exercise 5 min 58 sec of Delma protocol acheiving 83% MPHR, with 1-2/10 mid upper chest pressure at baseline which did not change with exercise, with mild to moderate shortness of breath and report of dizziness with exercise, with normotensive response to exercise, without EKG changes meeting criteria for ischemia at achieved workload. In recovery her sob and dizziness resolved and chest discomfort became with worse with deep inspiration only. Accuracy to assess for ischemia slighthly decreased due to inability to acheive 85% MPHR. Exercise capaciity moderately decreased. Test reviewed with Dr Sotelo Referred By: Le Dove Overread By: LE DOVE
== END ==
LOC: HO.CARD 08:50
PROVIDERS: PCP Family Medicine; Visit Provider Nurse Practitioner Family
DX: R06.02 Shortness of breath (principal); U09.9 Post COVID-19 condition, unspecified
CPT/HCPCS: 93017; 93306

== ENCOUNTER → 2022-04-17 15:22 | Outpatient (BNVA) | payer OTHER, SELFPAY | PROVIDERS: PCP Family Medicine; Visit Provider Internal Medicine | DX: R07.89 Other chest pain (principal); R06.02 Shortness of breath; U09.9 Post COVID-19 condition, unspecified | CPT/HCPCS: 99202 ==

== ENCOUNTER 2022-06-18 15:48 | Outpatient (REF) | payer OTHER, SELFPAY ==
--- NOTE | 2022-06-18 17:27 | PFT_ITS ---
Forced vital capacity 109%, FEV1 103%, TAP77-16 91%, MVV 87%; all numbers are normal. Lung volumes; total lung capacity 112%, residual volume 105%. Diffusion capacity 70% CONCLUSION: Normal pulmonary function test. No evidence of obstructive or restrictive pulmonary disorder. Kathleen Schumacher MD MSB/MODL / [id number]
== END 2022-06-18 15:49 | disposition home or self-care (01) ==
LOC: HO.RESP 15:48
PROVIDERS: PCP Family Medicine; Visit Provider Internal Medicine
DX: R06.02 Shortness of breath (principal); U09.9 Post COVID-19 condition, unspecified
CPT/HCPCS: 94060; 94727; 94729

== ENCOUNTER → 2022-07-01 15:51 | Outpatient (BNVA) | payer OTHER, SELFPAY | PROVIDERS: PCP Family Medicine; Visit Provider Internal Medicine | DX: R06.02 Shortness of breath (principal); U09.9 Post COVID-19 condition, unspecified; R07.89 Other chest pain | CPT/HCPCS: 99212 ==

== ENCOUNTER 2022-12-31 06:02 | Outpatient (REF) | payer OTHER, SELFPAY ==
--- NOTE | ~2022-12-31 | XR_ITS ---
EXAMINATION: XR LUMBOSACRAL SPINE CLINICAL INFORMATION: Pain, lumbar, segmental dysfunction. COMPARISON: Lumbar radiographs 10/11/2016 TECHNIQUE: Three views of the lumbosacral spine. FINDINGS: Normal lumbar segmentation with 5 nonrib-bearing lumbar vertebrae of normal height. Borderline levocurvature similar to prior exam. Normal lumbar lordosis. No lumbar vertebral compression, spondylolisthesis, destructive process. There are are interval degenerative disc changes at L5-S1 with disc narrowing and endplate sclerosis and mild vertebral spurring. The SI joints and visualized sacrum are unremarkable. XR/XR lumbar spine 2-3V IMPRESSION: -Degenerative disc changes L5-S1 since prior imaging 2015.
--- NOTE | ~2022-12-31 | XR_ITS ---
EXAMINATION: XR CERVICAL SPINE CLINICAL INFORMATION: Pain. Cervical segmental dysfunction. COMPARISON: None TECHNIQUE: Cervical spine is imaged in 7 views. FINDINGS: There is straightening of the cervical lordosis and mild dextrocurvature mid to lower cervical spine. The vertebral bodies are normal in height. There is no cervical vertebral compression, spondylolisthesis, destructive process, or prevertebral soft tissue swelling. 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 The odontoid appears intact. There are degenerative disc changes C5-C6 with mild disc narrowing and vertebral spurring. Oblique view show osseous narrowing of the neural foramina or vertebral foraminal spurring. XR/XR cervical spine 5V IMPRESSION: 1. Straightening cervical lordosis with mild dextrocurvature. 2. Degenerative disc changes C5-C6. No foraminal spurring.
== END 2022-12-31 06:03 | disposition home or self-care (01) ==
LOC: HO.XRAY 06:02
PROVIDERS: PCP Family Medicine; Visit Provider Chiropractor
DX: M99.01 Segmental and somatic dysfunction of cervical region (principal); M99.03 Segmental and somatic dysfunction of lumbar region
CPT/HCPCS: 72050; 72100

== ENCOUNTER 2023-01-03 08:53 | Outpatient (REF) | payer OTHER, SELFPAY ==
[2023-01-03 14:04] LABS: CT PCR NOT DETECTED (Not Detect.); NG PCR NOT DETECTED (Not Detect.)
[2023-01-04 12:25] LABS: BV Int Neg Control Negative (Negative); BV Int Pos Control Positive (Positive)
== END 2023-01-03 08:54 | disposition home or self-care (01) ==
LOC: HO.LNP 08:53
PROVIDERS: PCP Family Medicine; Visit Provider Advanced Practice Midwife
DX: Z01.419 Encounter for gynecological examination (general) (routine) without abnormal findings (principal); K64.4 Residual hemorrhoidal skin tags; B37.89 Other sites of candidiasis
CPT/HCPCS: 0353U; 87480; 87510; 87660

== ENCOUNTER → 2023-03-28 08:51 | Outpatient (BNVA) | payer OTHER, SELFPAY | PROVIDERS: PCP Family Medicine; Visit Provider Advanced Practice Midwife | DX: Z12.4 Encounter for screening for malignant neoplasm of cervix (principal); Z30.09 Encounter for other general counseling and advice on contraception; I10 Essential (primary) hypertension | CPT/HCPCS: 99212 ==

== ENCOUNTER 2023-09-17 14:20 | Outpatient (REF) | payer OTHER, SELFPAY ==
[2023-09-17 17:10] LABS: Lipase 23 U/L (8-78)
[2023-09-17 17:27] LABS: TSH reflex Free T4 0.92 uIU/mL (0.32-4.0)
[2023-09-17 17:41] LABS: Folate 14.8 ng/mL (> or = 4.0); Vitamin B12 327 pg/mL (200-900)
[2023-09-20 19:03] LABS: Transglutaminase Ab IgG <1.0 U/mL; Transglutaminase IgA <1.0 U/mL
[2023-09-21 15:58] LABS: Vitamin D 25-OH, D2 <4 ng/mL; Vitamin D 25-OH, D3 36 ng/mL; Vitamin D 25-OH, Total 36 ng/mL (30-100)
== END 2023-09-17 14:21 | disposition home or self-care (01) ==
LOC: HO.LAB 14:20
PROVIDERS: PCP Family Medicine; Visit Provider Nurse Practitioner Family
DX: K58.2 Mixed irritable bowel syndrome (principal); R10.13 Epigastric pain; R14.0 Abdominal distension (gaseous); R13.14 Dysphagia, pharyngoesophageal phase; K21.9 Gastro-esophageal reflux disease without esophagitis; R10.9 Unspecified abdominal pain; K59.00 Constipation, unspecified; E55.9 Vitamin D deficiency, unspecified
CPT/HCPCS: 36415; 82306; 82607; 82746; 83690; 84443; 86003; 86364; 99202

== ENCOUNTER 2023-09-17 14:20 | Outpatient (AMB) | payer OTHER, SELFPAY ==
--- NOTE | 2023-09-17 14:21 | A.OFFVIS_ITS ---
Intake Vital Signs 09/17/23 14:22 Height 5 ft 7 in Weight 166 lb 10.711 oz BMI 26.1 BP 147/92 H Blood Pressure Location Rt brachial Position Sitting Pulse 75 Pulse Source Pulse Oximeter Pulse Oximetry (%) 100 Oxygen Delivery Method Room Air Intake Visit Reasons: Chronic Diarrhea Intake Note: Pt presents to the office today for chronic diarrhea. Pt states she has not been feeling well for a while. Pt states her tested positive for H. Pylori. Pt states she got tested for it and it came back negative in June 2023 but pt states she is still not feeling well. Pt states she has nausea,bloating, and diarrhea. Pt states she has vomiting but it is rare. Allergies No Known Allergies Allergy (Verified 09/17/23 14:25) HPI Chronic Diarrhea HPI Details 38-year-old female is here today for inshadi reyes consultation. Patient was sent to us by her PCP. Patient reports that for the past few months she has been experiencing multiple GI symptoms. Patient reports that her was diagnosed with H pylori back in June and states that she was negative when she tested. However patient does report to have a postprandial epigastric discomfort occasional nausea. Patient reports to have postprandial abdominal bloating, loose stools and then constipation. Patient denies any melena, hematochezia, unintentional weight loss or ribbon like stools. Patient reports dyspepsia and dysphagia without odynophagia. Patient denies any fever or chills. Denies traveling anywhere. Not around anyone with similar symptoms except her who was treated for H pylori back in June. [facility] Medical History Post-COVID chronic shortness of breath Headache Allergic rhinitis HTN (hypertension) Surgical History [place] teeth removed Hx of section Family History Father HTN (hypertension) Mother No problems noted. Maternal Grandmother CVD (cardiovascular disease) Maternal Grandfather Stroke Social History (Updated 09/17/23 @ 14:26 by Jeanna Matamoros MA) Household Members: Spouse Housing: House Alcohol intake: current Alcohol intake frequency: a few times a month Patient Tobacco Use Status: Former Tobacco user Quit Date: 2008 Years Smoked: 10 +/- Gender identity: Female Female Reproductive History Menstrual Age of Menarche: 12 Review of Systems Const Denies weight gain and Denies weight loss ENT Reports no additional complaints, Denies dysphagia and Denies odynophagia Card Reports no additional complaints Resp Reports no additional complaints GI Reports abdominal pain, Denies belching, Denies melena, Reports bloating, Denies change in bowel habits, Reports constipation, Denies dysphagia, Denies excessive flatus, Denies dyspepsia, Reports heartburn, Denies diarrhea, Reports loose stools, Reports nausea, Denies odynophagia and Denies vomiting Reports no additional complaints Musc Reports no additional complaints Neuro Reports no additional complaints Psych Reports no additional complaints Endo Reports no additional complaints Physical Exam Vital Signs: Last Vital Signs Pulse 75 09/17/23 14:22 BP 147/92 H 09/17/23 14:22 Pulse Ox 100 09/17/23 14:22 Oxygen Delivery Method Room Air 09/17/23 14:22 BMI result Body Mass Index 26.1 Const General: healthy appearing, no acute distress and well developed Nutritional Appearance: well nourished Orientation/consciousness: patient oriented x3 HEENT Head: Yes normal to inspection, Yes normocephalic and Yes atraumatic Face and sinus: Yes normal facial exam Mouth: Normal oral and palatal mucosa present Throat: Yes posterior oropharynx normal, Yes tonsils normal and Yes uvula midline Eyes General: appearance normal, both eyes and all related structures Neck Neck: Yes normal visual inspection, Yes full ROM and Yes trachea midline Thyroid: Thyroid normal Resp Effort & Inspection: normal respiratory effort, able to speak in complete sentences, no tracheal deviation and symmetric chest movement Auscultation: clear to auscultation bilaterally Cardio Rate: regular rate Heart sounds: S1 normal heart sound present and S2 normal heart sound present GI Inspection: Yes normal to inspection and No distended Palpation (GI): Soft to palpation, not firm, nontender and No hepatosplenomegaly present Auscultation: normal bowel sounds General: Yes no CVA tenderness Back/Spine/Pelvis Back: no CVA tenderness Skin General skin exam: elasticity normal, turgor normal and dry skin Neuro General: patient oriented x3 Psych Appearance: grossly normal Mental Status: mental status grossly normal Affect: normal affect Assessment & Plan Assessment & Plan (1) Epigastric abdominal pain: Code(s): R10.13 - Epigastric pain (2) Postprandial abdominal bloating: Code(s): R14.0 - Abdominal distension (gaseous) (3) IBS (irritable bowel syndrome): Code(s): K58.9 - Irritable bowel syndrome without diarrhea Qualifiers: Irritable bowel syndrome type: with both diarrhea and constipation Qualified Code(s): K58.2 - Mixed irritable bowel syndrome (4) Dysphagia: Code(s): R13.10 - Dysphagia, unspecified Qualifiers: Dysphagia type: pharyngoesophageal phase Qualified Code(s): R13.14 - Dysphagia, pharyngoesophageal phase Plan Will check for celiac, RAST allergen, check vitamin-D, B12 and folate levels. Will check her thyroids and lipase. Patient does admit to have occasional dysphagia will do barium swallow. Most likely her symptoms are related to reflux. Will treat her with PPI after she does her testing. Patient was encouraged to avoid dietary triggers in late night snacking. Low FODMAP diet discussed with patient. List of food recommended as well as list of food to avoid given to patient. Patient also does not empty her bowels completely occasional diarrhea. Will start her on Citrucel and give her Senokot to help her empty her bowels completely. I will see her in 5 weeks, sooner on as needed basis. Patient is agreeable to this plan and verbalizes understanding of instructions. She was given the opportunity to ask questions and all questions answered. Thank you for allowing me to participate in her care Orders: Orders Rast Allergen 09/17/23 K21.9 - Gastro-esophageal reflux disease without esophagitis Transglutaminase Ab IgG 09/17/23 R10.9 - Unspecified abdominal pain Vitamin D 25-OH (D2 and D3) 09/17/23 E55.9 - Vitamin D deficiency, unspecified FL barium swallow 09/17/23 R13.10 - Dysphagia, unspecified, R10.13 - Epigastric pain, R11.2 - Nausea with vomiting, unspecified Transglutaminase IgA 09/17/23 R10.9 - Unspecified abdominal pain TSH reflex Free T4 09/17/23 K59.00 - Constipation, unspecified Lipase 09/17/23 R10.9 - Unspecified abdominal pain Vitamin B12 and Folate 09/17/23 R19.7 - Diarrhea, unspecified Medications: New sennosides (Natural Senna Laxative) 17.2 mg (2 x 8.6 mg) PO BEDTIME 60 tabs 3RF constipation K59.00 - Constipation, unspecified methylcellulose (laxative) (Citrucel) take it with full glass of water 500 mg PO DAILY 30 tabs 2RF K59.00 - Constipation, unspecified Coding Level of Care Code New Pt Level 4 (20179) Diagnoses Epigastric abdominal pain R10.13 Postprandial abdominal bloating R14.0 Irritable bowel syndrome with both constipation and diarrhea K58.2 Irritable bowel syndrome type: with both diarrhea and constipation Pharyngoesophageal dysphagia R13.14 Dysphagia type: pharyngoesophageal phase
[2023-09-17 14:22] VITALS: BP 147/92; PULSE 75; O2SAT 100; BMI 26.1
== END 2023-09-17 15:11 | disposition home or self-care (01) ==
PROVIDERS: PCP Family Medicine; Visit Provider Nurse Practitioner Family
DX: R10.13 Epigastric pain (principal); R14.0 Abdominal distension (gaseous); K58.2 Mixed irritable bowel syndrome; R13.14 Dysphagia, pharyngoesophageal phase
CPT/HCPCS: 99204

== ENCOUNTER 2023-12-04 09:12 | Outpatient (REF) | payer OTHER, SELFPAY ==
--- NOTE | ~2023-12-04 | FL_ITS ---
EXAMINATION: FL UPPER GI CLINICAL INFORMATION: Epigastric pain. COMPARISON: None TECHNIQUE: Fluoroscopic air contrast upper GI examination was performed utilizing standard techniques with thin and thick barium and effervescent granules. Numerous spot images were obtained. FINDINGS: Lateral cine images of the oropharynx and hypopharynx demonstrate normal swallow mechanism with normal epiglottic inversion and soft palate elevation. No tracheal penetration, glottic or subglottic aspiration identified. No nasopharyngeal reflux present. Hypopharyngeal structures appear normal without evidence of mass or diverticulum. There was no significant cricopharyngeal achalasia. Dual and single contrast images of the esophagus demonstrate normal caliber, contour, and mucosal pattern. No evidence of stricture, mass, or ulcerations identified. Esophageal peristalsis was normal. A small type I hiatal hernia is identified. Gastroesophageal reflux is seen up to the distal esophagus. Dual contrast and single contrast images of the stomach demonstrated normal contour. There are several tiny filling defects identified within the fundus and body of the stomach suspicious for tiny hyperplastic polyps. Contrast freely passed into the gastric antrum and duodenal bulb without delay. Single and air-contrast images of the duodenal bulb demonstrate no abnormality. The duodenal sweep has a normal appearance, course, and mucosal fold appearance. No malrotation. The imaged proximal jejunum has a normal fold pattern and caliber. FLUOROSCOPY TIME: 2 minutes 54 seconds Number of Spot Images: 9 Number of Cine: 7 DOSE AREA PRODUCT: 1476 uGy-m2 (microgray-meter squared) FL/FL barium swallow with air IMPRESSION: 1. Small type I hiatal hernia. 2. Mild gastroesophageal reflux 3. Several tiny polyps suspected within the stomach involving the fundus and body. This procedure was performed by Brenden Martinez PA-C, and supervised by Dr. Rosado
== END 2023-12-04 09:13 | disposition home or self-care (01) ==
LOC: HO.XRAY 09:12
PROVIDERS: PCP Family Medicine; Visit Provider Nurse Practitioner Family
DX: R13.10 Dysphagia, unspecified (principal); R10.13 Epigastric pain; R11.2 Nausea with vomiting, unspecified
CPT/HCPCS: 74221

== ENCOUNTER → 2023-12-04 09:14 | Outpatient (BNV) | payer OTHER, SELFPAY | PROVIDERS: PCP Family Medicine; Visit Provider Radiology Diagnostic Radiology | DX: R10.13 Epigastric pain (principal) | CPT/HCPCS: 74221 ==

== ENCOUNTER 2023-12-10 15:26 | Outpatient (AMB) | payer OTHER, SELFPAY ==
--- NOTE | 2023-12-10 15:27 | A.OFFVIS_ITS ---
Intake Vital Signs 12/10/23 15:30 Height 5 ft 7 in Weight 165 lb 5.547 oz BMI 25.9 BP 154/103 H Blood Pressure Location Rt brachial Position Sitting Intake Visit Reasons: follow up barium swallow Intake Note: Melba presents in the office as a follow up ba swallow. CC: Allergies No Known Allergies Allergy (Verified 09/17/23 14:25) HPI follow up barium swallow HPI Details LAST VISIT Epigastric abdominal pain Postprandial abdominal bloating IBS (irritable bowel syndrome) Dysphagia Plan Will check for celiac, RAST allergen, check vitamin-D, B12 and folate levels. Will check her thyroids and lipase. Patient does admit to have occasional dysphagia will do barium swallow. Most likely her symptoms are related to reflux. Will treat her with PPI after she does her testing. Patient was encouraged to avoid dietary triggers in late night snacking. Low FODMAP diet discussed with patient. List of food recommended as well as list of food to avoid given to patient. Patient also does not empty her bowels completely occasional diarrhea. Will start her on Citrucel and give her Senokot to help her empty her bowels completely. I will see her in 5 weeks, sooner on as needed basis. Patient is agreeable to this plan and verbalizes understanding of instructions. She was given the opportunity to ask questions and all questions answered. ? Thank you for allowing me to participate in her care Orders Orders Rast Allergen 09/17/23 K21.9 Transglutaminase Ab IgG 09/17/23 R10.9 Vitamin D 25-OH (D2 and D3) 09/17/23 E55.9 FL barium swallow 09/17/23 R13.10, R10.13, R11.2 Transglutaminase IgA 09/17/23 R10.9 TSH reflex Free T4 09/17/23 K59.00 Lipase 09/17/23 R10.9 Vitamin B12 and Folate 09/17/23 R19.7 Medications New sennosides (Natural Senna Laxative) 17.2 mg (2 x 8.6 mg) PO BEDTIME 60 tabs 3RF constipation K59.00 methylcellulose (laxative) (Citrucel) take it with full glass of water 500 mg PO DAILY 30 tabs 2RF K59.00 TODAY'S VISIT: Patient is here today for follow-up and to discuss lab results and barium swallow results. Patient reports that she was doing little better, however she continues to have occasional loose stools postprandially. Patient stopped taking senna as she felt that she was becoming dehydrated. Currently patient is not taking anything. Trying to avoid dietary triggers. Noticed worsening symptoms with lactose. Patient has not been following low FODMAP diet at this moment. Barium swallow showed mild hiatal hernia and mild reflux. Patient is not taking any PPI. Dietary reflux precautions recommended. Patient denies any nausea or vomiting. Patient denies any melena, hematochezia, unintentional weight loss or ribbon like stools. Patient does not have any family history of IBD. [facility] Medical History Post-COVID chronic shortness of breath Headache Allergic rhinitis HTN (hypertension) Surgical History [place] teeth removed Hx of section Family History Father HTN (hypertension) Mother No problems noted. Maternal Grandmother CVD (cardiovascular disease) Maternal Grandfather Stroke Social History (Updated 09/17/23 @ 14:26 by Jeanna Matamoros MA) Household Members: Spouse Housing: House Alcohol intake: current Alcohol intake frequency: a few times a month Patient Tobacco Use Status: Former Tobacco user Quit Date: 2008 Years Smoked: 10 +/- Gender identity: Female Female Reproductive History Menstrual Age of Menarche: 12 Review of Systems Const Denies weight gain and Denies weight loss ENT Reports no additional complaints, Denies dysphagia and Denies odynophagia Card Reports no additional complaints Resp Reports no additional complaints GI Reports abdominal pain (Occasional), Denies belching, Denies melena, Reports bloating, Denies change in bowel habits, Denies dysphagia, Denies excessive flatus, Denies dyspepsia, Denies heartburn, Denies diarrhea, Reports loose stools, Denies nausea, Denies odynophagia and Denies vomiting Reports no additional complaints Musc Reports no additional complaints Neuro Reports no additional complaints Psych Reports no additional complaints Endo Reports no additional complaints Physical Exam Vital Signs: Last Vital Signs BP 154/103 H 12/10/23 15:30 BMI result Body Mass Index 25.9 Const General: healthy appearing, no acute distress and well developed Nutritional Appearance: well nourished Orientation/consciousness: patient oriented x3 Resp Effort & Inspection: normal respiratory effort, able to speak in complete sentences, no tracheal deviation and symmetric chest movement Auscultation: clear to auscultation bilaterally Cardio Rate: regular rate GI Inspection: Yes normal to inspection and No distended Palpation (GI): Soft to palpation, not firm, nontender and No hepatosplenomegaly present Auscultation: normal bowel sounds General: Yes no CVA tenderness Back/Spine/Pelvis Back: no CVA tenderness Skin General skin exam: elasticity normal, turgor normal and dry skin Neuro General: patient oriented x3 Psych Appearance: grossly normal Mental Status: mental status grossly normal Affect: normal affect Results Reviewed Results Reviewed: Laboratory Tests 09/17/23 15:22 Lipase 23 Vitamin B12 327 25-OH Vitamin D Total 36 Folate 14.8 TSH 0.92 Tiss Transglutamin IgG <1.0 Tiss Transglutamin IgA <1.0 BARIUM SWALLOW 12/04/2023 FINDINGS: Lateral cine images of the oropharynx and hypopharynx demonstrate normal swallow mechanism with normal epiglottic inversion and soft palate elevation. No tracheal penetration, glottic or subglottic aspiration identified. No nasopharyngeal reflux present. Hypopharyngeal structures appear normal without evidence of mass or diverticulum. There was no significant cricopharyngeal achalasia. Dual and single contrast images of the esophagus demonstrate normal caliber, contour, and mucosal pattern. No evidence of stricture, mass, or ulcerations identified. Esophageal peristalsis was normal. A small type I hiatal hernia is identified. Gastroesophageal reflux is seen up to the distal esophagus. Dual contrast and single contrast images of the stomach demonstrated normal contour. There are several tiny filling defects identified within the fundus and body of the stomach suspicious for tiny hyperplastic polyps. Contrast freely passed into the gastric antrum and duodenal bulb without delay. Single and air-contrast images of the duodenal bulb demonstrate no abnormality. The duodenal sweep has a normal appearance, course, and mucosal fold appearance. No malrotation. The imaged proximal jejunum has a normal fold pattern and caliber. FLUOROSCOPY TIME: 2 minutes 54 seconds Number of Spot Images: 9 Number of Cine: 7 DOSE AREA PRODUCT: 1476 uGy-m2 (microgray-meter squared) FL/FL barium swallow with air IMPRESSION: 1. Small type I hiatal hernia. 2. Mild gastroesophageal reflux 3. Several tiny polyps suspected within the stomach involving the fundus and body. Assessment & Plan Assessment & Plan (1) External hemorrhoid: Code(s): K64.4 - Residual hemorrhoidal skin tags (2) Epigastric abdominal pain: Code(s): R10.13 - Epigastric pain (3) Postprandial abdominal bloating: Code(s): R14.0 - Abdominal distension (gaseous) (4) IBS (irritable bowel syndrome): Code(s): K58.9 - Irritable bowel syndrome without diarrhea Qualifiers: Irritable bowel syndrome type: with both diarrhea and constipation Qualified Code(s): K58.2 - Mixed irritable bowel syndrome (5) Dysphagia: Code(s): R13.10 - Dysphagia, unspecified Qualifiers: Dysphagia type: other dysphagia Qualified Code(s): R13.19 - Other dysphagia Plan Will rule out IBD, CRP and fecal calprotectin ordered. Will also order C diff study if we will be sending patient for colonoscopy. Patient can continue taking Citrucel to help her bulk stools. Increase fluid intake and activity to promote better bowel motility. Mild hiatal hernia seen on barium study. Mild reflux. Patient will start on Nexium daily for 4 weeks and will return to our office in 4-5 weeks, sooner on as needed basis. Patient has benign abdomen on exam. Low FODMAP diet discussed with patient again. List of food recommend fat and list of food to avoid addressed with patient. Stay away from lactose and try avoiding gluten. Patient is agreeable to this plan and verbalizes understanding of instructions. She was given the opportunity to ask questions and all questions answered. Thank you for allowing me to participate in her care Orders: Orders C Reactive Protein Today K58.9 - Irritable bowel syndrome without diarrhea CDiff Gene PCR Today R19.7 - Diarrhea, unspecified Calprotectin, Fecal Today R15.9 - Full incontinence of feces Medications: New esomeprazole magnesium (Nexium 24HR) 20 mg PO DAILY 30 tabs 0RF Discontinued sennosides (Natural Senna Laxative) Discontinued Reason: Patient no longer taking 17.2 mg (2 x 8.6 mg) PO BEDTIME 60 tabs 3RF constipation K59.00 - Constipation, unspecified Coding Level of Care Code Est Pt Level 4 (53598) Diagnoses External hemorrhoid K64.4 Epigastric abdominal pain R10.13 Postprandial abdominal bloating R14.0 Irritable bowel syndrome with both constipation and diarrhea K58.2 Irritable bowel syndrome type: with both diarrhea and constipation Other dysphagia R13.19 Dysphagia type: other dysphagia Time Spent (min) 35 Comment 20 minutes spent with patient and additional 15 minutes spent reviewing her records
[2023-12-10 15:30] VITALS: BP 154/103; BMI 25.9
== END 2023-12-10 16:02 | disposition home or self-care (01) ==
PROVIDERS: PCP Family Medicine; Visit Provider Nurse Practitioner Family
DX: K64.4 Residual hemorrhoidal skin tags (principal); R10.13 Epigastric pain; R14.0 Abdominal distension (gaseous); K58.2 Mixed irritable bowel syndrome; R13.19 Other dysphagia
CPT/HCPCS: 99214

== ENCOUNTER 2023-12-10 15:26 | Outpatient (REF) | payer OTHER, SELFPAY ==
[2023-12-10 18:42] LABS: C Reactive Protein 0.43 mg/dL (< or = 0.50)
== END 2023-12-10 15:27 | disposition home or self-care (01) ==
LOC: HO.LAB 15:26
PROVIDERS: PCP Family Medicine; Visit Provider Nurse Practitioner Family
DX: K58.2 Mixed irritable bowel syndrome (principal); K64.4 Residual hemorrhoidal skin tags; R14.0 Abdominal distension (gaseous); R10.13 Epigastric pain; R13.19 Other dysphagia; R15.9 Full incontinence of feces
CPT/HCPCS: 36415; 86140; 99212

== ENCOUNTER 2023-12-19 11:58 | Outpatient (REF) | payer OTHER, SELFPAY ==
[2023-12-25 17:25] LABS: Calprotectin, Fecal 12 mcg/g
== END 2023-12-19 11:59 | disposition home or self-care (01) ==
LOC: HO.LNP 11:58
PROVIDERS: Visit Provider Nurse Practitioner Family
DX: R15.9 Full incontinence of feces (principal)
CPT/HCPCS: 83993; 87493

== ENCOUNTER 2024-01-13 08:45 | Outpatient (AMB) | payer OTHER, SELFPAY ==
--- NOTE | 2024-01-13 08:53 | A.OFFVIS_ITS ---
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 Required: No Information Interpreted: clinical only Extrusion Former: Extrusion Former Present Allergies No Known Allergies Allergy (Verified 01/13/24 08:53) Medication List - Last Reconciled 01/13/24 by Antoinette Espino CNM [id number] 50-325-40 mg 1 tab PO BID PRN esomeprazole magnesium (Nexium 24HR) 20 mg PO DAILY etonogestrel-ethinyl estradiol 0.12-0.015 mg/24 hr (EluRyng) 1 vag ring vaginal Q4W methylcellulose (laxative) (Citrucel) 500 mg PO DAILY Is last menstrual period known: No (unsure date ?) Do you need a note to return to daycare/school/sports/work: No 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 HPI Details Here for annual exam doing well not having any concerns happy with the NuvaRing gets regular periods but sometimes they are so light that they almost seem like they are not there only 1 real 1 about every other month she is noticing vaginal dryness couple of weeks ago she had some vaginal itching but she got Monistat [id number] in that took care of it fine she is not worried about STDs and declines any testing her daughter's 20 years old in college studying mechanical engineering and working as a could that at [employer] and electric 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 Mammograms turned out fine last year or whenever they were done she will start yearly mammograms this year [facility] Medical History (Updated 01/13/24 @ 10:46 by Antoinette Espino CNM) Post-COVID chronic shortness of breath Headache Allergic rhinitis HTN (hypertension) Surgical History [place] teeth removed Hx of section Family History Father HTN (hypertension) Mother No problems noted. Maternal Grandmother CVD (cardiovascular disease) Maternal Grandfather Stroke Social History Household Members: Spouse Housing: House Alcohol intake: current Alcohol intake frequency: a few times a month Patient Tobacco Use Status: Former Tobacco user Quit Date: 2008 Years Smoked: 10 +/- Gender identity: Female Female Reproductive History Menstrual Age of Menarche: 12 Duration of menses: <3 days control method: vaginal ring Total pregnancies: 1 Full term: 1 Date of last pap smear: 01/05/22 (neg,previous pap neg.2018) History of abnormal pap smear: Yes ( abnormal pap,2011) Physical Exam Vital Signs: Last Vital Signs BP 128/70 01/13/24 08:56 BMI result Body Mass Index 26.9 Const Other: And slightly purplish consistent with Raynaud's General: healthy appearing, comfortable, no acute distress, well developed and alert Nutritional Appearance: average body habitus Orientation/consciousness: patient oriented x3 Limitations: no limitations HEENT Head: Yes normocephalic Neck Neck: Yes normal visual inspection Thyroid: Thyroid normal Chest Chest palpation & inspection: normal inspection of the chest Breast/axilla inspection: normal inspection of the breasts and normal inspection of the axillae Breast/axilla palpation: normal palpation of the breasts and normal palpation of the axillae Resp Effort & Inspection: normal respiratory effort GI Inspection: Yes normal to inspection, No Abdominal wall edema and No distended Palpation (GI): Soft to palpation and nontender Other: Normal vagina slight dryness noted vagina pink normal discharge cervix multiparous normal NuvaRing present uterus not enlarged nontender adnexa nontender good tone with Kegel. General: Yes bladder normal to palpation External Female Exam: normal external appearance and normal appearance of the urethra Speculum Exam - Vagina: normal appearance of the vagina, normal palpation and normal vaginal discharge Speculum Exam - Cervix: normal appearance of the cervix, normal palpation and nontender Bimanual exam- vagina & uterus: normal bimanual exam, normal palpation, uterine size normal, bladder normal to palpation, consistency normal, normal palpation, uterine mobility normal, uterine shape normal, No Cervical tenderness present, non-tender and no cervical motion tenderness Bimanual Exam- Adnexa, other: normal adnexae, no masses, normal and No adnexal tenderness Neuro General: patient oriented x3 Assessment & Plan Assessment & Plan (1) Well woman exam with routine gynecological exam: Code(s): Z01.419 - Encounter for gynecological examination (general) (routine) without abnormal findings (2) control counseling: Code(s): Z30.09 - Encounter for other general counseling and advice on contraception (3) HTN (hypertension): Comment: not today. discussed. she is watching it. discussed d/c of nuva ring if high bp returns.... Code(s): I10 - Essential (primary) hypertension (4) Cervical cancer screening: Comment: Pap equals negative with negative HPV Code(s): Z12.4 - Encounter for screening for malignant neoplasm of cervix (5) Raynauds phenomenon: Code(s): I73.00 - Raynaud's syndrome without gangrene Plan -----Discussed in this visit the following: healthy balanced diet, regular and consistent exercise, getting recommended health screens, doing the best she can for her particular health concerns, kegel exercises, pap smear screening and followup recommendations, mammography screening and SBE, normal changes in cycles in her life stage--- . To start yearly mammograms this year Discussed her content this with the NuvaRing her periods are getting mold puller and sometimes only come every other month there is very light spotting but it is always at the appropriate time she is noticing the vaginal dryness and using water-based lubricants as needed. 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 She acknowledges that she does believe she has Raynaud's. Discussed an mention of elevated blood pressure in the chart she did have some high blood pressure previous visits and she was told it was probably more white coat hypertension and she did have some tests she is monitoring at home and it was normal today discussed that if this did return or continue and was an issue we would need to DC the NuvaRing and consider a progestin only pill or progestin only IUD for control. She had no director strategic account management concerns all testing declined history of abnormal Pap was back in 2012 normal since consider Pap next year. Orders: Orders MM tomosynthesis screening BI Today Z01.419 - Encounter for gynecological examination (general) (routine) without abnormal findings, Z12.31 - Encounter for screening mammogram for malignant neoplasm of breast, Z30.09 - Encounter for other general counseling and advice on contraception Medications: Refilled etonogestrel-ethinyl estradiol 0.12-0.015 mg/24 hr (Juancarlos) place ring in vagina and leave in place for 3w of a 4 w cycle, according to instructions; report any BP elevations 1 vag ring vaginal Q4W 3 rings 3RF Coding Level of Care Code Est Pt Prev Care 40-64y(59409) Diagnoses Well woman exam with routine gynecological exam Z01.419 control counseling Z30.09 HTN (hypertension) I10 Cervical cancer screening Z12.4 Raynauds phenomenon I73.00
[2024-01-13 08:56] VITALS: BP 128/70; BMI 26.9
== END 2024-01-13 09:45 | disposition home or self-care (01) ==
LOC: HO.HWS 08:47
PROVIDERS: PCP Family Medicine; Visit Provider Advanced Practice Midwife
DX: Z01.419 Encounter for gynecological examination (general) (routine) without abnormal findings (principal); I10 Essential (primary) hypertension; I73.00 Raynaud's syndrome without gangrene
CPT/HCPCS: 99395

== ENCOUNTER → 2024-01-13 08:45 | Outpatient (BNVA) | payer OTHER, SELFPAY | PROVIDERS: PCP Family Medicine; Visit Provider Advanced Practice Midwife | DX: Z01.419 Encounter for gynecological examination (general) (routine) without abnormal findings (principal); Z30.09 Encounter for other general counseling and advice on contraception; Z12.4 Encounter for screening for malignant neoplasm of cervix; I10 Essential (primary) hypertension; I73.00 Raynaud's syndrome without gangrene | CPT/HCPCS: 99395 ==

== ENCOUNTER 2024-01-16 15:36 | Outpatient (AMB) | payer OTHER, SELFPAY ==
--- NOTE | 2024-01-16 15:41 | MHC.OFFVIS ---
Intake Vital Signs 01/16/24 15:45 Height 5 ft 7 in Weight 165 lb BMI 25.8 BP 141/86 H Blood Pressure Location Lt brachial Position Sitting Pulse 77 Intake Visit Reasons: 5 week follow up Intake Note: Patient follow up for dysphagia and lab results. Patient cc: Nauseas, abdominal discomfort, some swallowing problems, and diarrhea. Denies any other GI issues. [employer] Gar[employer] Required: No Accompanied by: Self / Same As Patient Allergies No Known Allergies Allergy (Verified 01/16/24 15:41) HPI 5 week follow up HPI Details LAST VISIT External hemorrhoid Epigastric abdominal pain Postprandial abdominal bloating IBS (irritable bowel syndrome) Dysphagia Plan Will rule out IBD, CRP and fecal calprotectin ordered. Will also order C diff study if we will be sending patient for colonoscopy. Patient can continue taking Citrucel to help her bulk stools. Increase fluid intake and activity to promote better bowel motility. Mild hiatal hernia seen on barium study. Mild reflux. Patient will start on Nexium daily for 4 weeks and will return to our office in 4-5 weeks, sooner on as needed basis. Patient has benign abdomen on exam. Low FODMAP diet discussed with patient again. List of food recommend fat and list of food to avoid addressed with patient. Stay away from lactose and try avoiding gluten. Patient is agreeable to this plan and verbalizes understanding of instructions. She was given the opportunity to ask questions and all questions answered. ? Thank you for allowing me to participate in her care Orders Orders C Reactive Protein Today K58.9 CDiff Gene PCR Today R19.7 Calprotectin, Fecal Today R15.9 Medications New esomeprazole magnesium (Nexium 24HR) 20 mg PO DAILY 30 tabs 0RF Discontinued sennosides (Natural Senna Laxative) Discontinued Reason: Patient no longer taking 17.2 mg (2 x 8.6 mg) PO BEDTIME 60 tabs 3RF constipation K59.00 TODAY'S VISIT: Patient is here today for follow-up and to discuss lab results. Normal calprotectin and normal CRP. C diff not done as the stool was solid without any mucus. Patient reports that she continues to have loose stools postprandially. Patient denies any melena, hematochezia, unintentional weight loss or ribbon like stools. Patient continues to have nausea with dyspepsia. Postprandial epigastric discomfort. Often patient needs to go to the bathroom postprandially and have loose stools. Patient reports that she is taking Citrucel after breakfast and Nexium in the morning. Patient reports dry mouth even though she drinks water throughout the day. Patient is unsure if this is caused by Nexium or Citrucel. [facility] Medical History (Updated 01/13/24 @ 10:46 by Antoinette Espino CNM) Post-COVID chronic shortness of breath Headache Allergic rhinitis HTN (hypertension) Surgical History [place] teeth removed Hx of section Family History Father HTN (hypertension) Mother No problems noted. Maternal Grandmother CVD (cardiovascular disease) Maternal Grandfather Stroke Social History Household Members: Spouse Housing: House Alcohol intake: current Alcohol intake frequency: a few times a month Patient Tobacco Use Status: Former Tobacco user Quit Date: 2008 Years Smoked: 10 +/- Gender identity: Female Female Reproductive History Menstrual Age of Menarche: 12 Review of Systems Const Denies weight gain and Denies weight loss ENT Reports no additional complaints, Reports dysphagia and Denies odynophagia Card Reports no additional complaints Resp Reports no additional complaints GI Reports abdominal pain (Epigastric), Denies belching, Denies melena, Reports bloating, Denies change in bowel habits, Reports dysphagia, Denies excessive flatus, Reports dyspepsia, Denies heartburn, Denies diarrhea, Reports loose stools, Reports nausea, Denies odynophagia and Denies vomiting Reports no additional complaints Musc Reports no additional complaints Neuro Reports no additional complaints Psych Reports no additional complaints Endo Reports no additional complaints Physical Exam Vital Signs: Last Vital Signs Pulse 77 01/16/24 15:45 BP 141/86 H 01/16/24 15:45 BMI result Body Mass Index 25.8 Const General: healthy appearing, no acute distress and well developed Nutritional Appearance: well nourished Orientation/consciousness: patient oriented x3 Resp Effort & Inspection: normal respiratory effort, able to speak in complete sentences, no tracheal deviation and symmetric chest movement Auscultation: clear to auscultation bilaterally Cardio Rate: regular rate GI Inspection: Yes normal to inspection and No distended Palpation (GI): Soft to palpation, not firm, nontender and No hepatosplenomegaly present Auscultation: normal bowel sounds General: Yes no CVA tenderness Back/Spine/Pelvis Back: no CVA tenderness Skin General skin exam: elasticity normal, turgor normal and dry skin Neuro General: patient oriented x3 Psych Appearance: grossly normal Mental Status: mental status grossly normal Assessment & Plan Assessment & Plan (1) External hemorrhoid: Code(s): K64.4 - Residual hemorrhoidal skin tags (2) Epigastric abdominal pain: Code(s): R10.13 - Epigastric pain (3) Postprandial abdominal bloating: Code(s): R14.0 - Abdominal distension (gaseous) (4) IBS (irritable bowel syndrome): Code(s): K58.9 - Irritable bowel syndrome without diarrhea Qualifiers: Irritable bowel syndrome type: with both diarrhea and constipation Qualified Code(s): K58.2 - Mixed irritable bowel syndrome (5) Dysphagia: Code(s): R13.10 - Dysphagia, unspecified Qualifiers: Dysphagia type: pharyngoesophageal phase Qualified Code(s): R13.14 - Dysphagia, pharyngoesophageal phase Plan Patient will continue taking Nexium in the morning and Citrucel, however patient will try to stop Citrucel for few days and see if her symptoms of dry mouth will go away and then she will do the same thing stopping Nexium. Discussed with patient avoiding dietary triggers and late night snacking. Staying upright for minimum 3 hours after meals discussed with patient. Patient will be sent for upper endoscopy to evaluate for esophagitis, gastritis, peptic or gastric ulcers, Alvarado's, Schatzki ring. Symptoms of dysphagia continues at times. Patient had normal calprotectin and normal CRP unlikely IBD. However patient does have abdominal pain and bloating, could experience inability to empty due to diverticular disease. Patient continues with loose stools postprandially. She will go for diagnostic colonoscopy. Patient denies any cardiac or respiratory symptoms. Not on any anticoagulation medication. No history of sleep apnea. No issues with anesthesia in the past. I will see patient after the procedure, sooner on as needed basis. What to expect before during and after procedure discussed with patient. Stressed the importance of clear liquid diet day before procedure as well as good bowel prep. Patient reports that her just had a colonoscopy and she was helping him to go through that when he was prepping for his procedure. Patient is agreeable to current plan of care and verbalizes understanding of instructions. She was given the opportunity to ask questions and all questions answered. Thank you for allowing me to participate in her care Medications: New bisacodyl (Dulcolax (bisacodyl)) take 4 tabs at noon the day before your colonoscopy 20 mg (4 x 5 mg) PO ONCE 1 day 4 tabs 0RF Z12.11 - Encounter for screening for malignant neoplasm of colon polyethylene glycol 3350 (Miralax) As directed by gastroenterology department at [facility] 238 grams PO ONCE 238 grams 0RF Z12.11 - Encounter for screening for malignant neoplasm of colon Coding Level of Care Code Est Pt Level 4 (55598) Diagnoses External hemorrhoid K64.4 Epigastric abdominal pain R10.13 Postprandial abdominal bloating R14.0 Irritable bowel syndrome with both constipation and diarrhea K58.2 Irritable bowel syndrome type: with both diarrhea and constipation Pharyngoesophageal dysphagia R13.14 Dysphagia type: pharyngoesophageal phase Time Spent (min) 40 Comment 25 minutes spent with patient and additional 15 minutes spent reviewing her records
[2024-01-16 15:45] VITALS: BP 141/86; PULSE 77; BMI 25.8
== END 2024-01-16 16:24 | disposition home or self-care (01) ==
PROVIDERS: PCP Family Medicine; Visit Provider Nurse Practitioner Family
DX: K64.4 Residual hemorrhoidal skin tags (principal); R10.13 Epigastric pain; R14.0 Abdominal distension (gaseous); K58.2 Mixed irritable bowel syndrome; R13.14 Dysphagia, pharyngoesophageal phase
CPT/HCPCS: 99214

== ENCOUNTER → 2024-01-16 15:36 | Outpatient (BNVA) | payer OTHER, SELFPAY | PROVIDERS: PCP Family Medicine; Visit Provider Nurse Practitioner Family | DX: K64.4 Residual hemorrhoidal skin tags (principal); K58.2 Mixed irritable bowel syndrome; R10.13 Epigastric pain; R14.0 Abdominal distension (gaseous); R13.14 Dysphagia, pharyngoesophageal phase | CPT/HCPCS: 99212 ==

== ENCOUNTER 2024-02-23 16:13 | Outpatient (REF) | payer OTHER, SELFPAY ==
--- NOTE | ~2024-02-23 | MM_ITS ---
EXAMINATION: MM SCREENING DIGITAL BREAST TOMOSYNTHESIS, BILATERAL CLINICAL INFORMATION: Screening. Asymptomatic. COMPARISON: Mammography: This study is compared with prior exams dating back to 2021. TECHNIQUE: Digital breast tomosynthesis is performed in both the craniocaudal and mediolateral oblique views along with computer-aided detection (CAD). Synthesized 2D images are generated from the tomosynthesis. FINDINGS: There are scattered areas of fibroglandular density (ACR BI-RADS breast composition Category b). There is an asymmetry in the superior aspect of the left breast. Additional mammographic and targeted sonographic imaging of this region is advised. In the right breast, there are no significant masses, abnormal calcifications, or other abnormalities. MM/MM tomosynthesis screening BI IMPRESSION: Left breast asymmetry warrants additional mammographic and targeted sonographic evaluation No mammographic signs of malignancy right breast. ASSESSMENT: BI-RADS BI-RADS 0 - Incomplete: Needs additional Imaging. RECOMMENDATION: 1. Additional views of the left breast. 2. Targeted ultrasound if warranted after review of the additional views. 3. Radiology department staff will contact the patient for additional imaging. Additional Imaging required This examination should not preclude the clinical evaluation of a suspicious palpable abnormality. This patient's information was entered into a reminder system with a target due date for their next mammogram.
== END 2024-02-23 16:14 | disposition home or self-care (01) ==
LOC: HO.MAMMO 16:13
PROVIDERS: PCP Family Medicine; Visit Provider Advanced Practice Midwife
DX: Z12.31 Encounter for screening mammogram for malignant neoplasm of breast (principal)
CPT/HCPCS: 77063; 77067

== ENCOUNTER → 2024-02-23 16:30 | Outpatient (BNV) | payer OTHER, SELFPAY | PROVIDERS: PCP Family Medicine; Visit Provider Radiology Diagnostic Radiology | DX: Z12.31 Encounter for screening mammogram for malignant neoplasm of breast (principal) | CPT/HCPCS: 77063; 77067 ==

== ENCOUNTER 2024-03-24 14:23 | Outpatient (REF) | payer OTHER, SELFPAY ==
--- NOTE | ~2024-03-24 | US_ITS ---
EXAMINATION: MM DIAGNOSTIC DIGITAL BREAST TOMOSYNTHESIS, LEFT US BREAST LIMITED, LEFT MAMMOGRAPHY: CLINICAL INFORMATION: Evaluate one view asymmetry superior left breast seen on left MLO only. No correlate on CC view. COMPARISON: Mammography: 02/23/2024 screening examination. 01/03/2022 Baseline exam. TECHNIQUE: Digital breast tomosynthesis is performed in the following views: Full-field left digital mediolateral view, and spot compression 3-D view left MLO projection. This was followed by targeted left breast ultrasound. FINDINGS: The breasts are extremely dense, which lowers the sensitivity of mammography (ACR BI-RADS breast composition Category d). Diagnostic views demonstrate no persistent masses, suspicious calcifications, or areas of architectural distortion in the left breast. The one view asymmetry essentially effaces on spot compression view. Only extremely dense breast parenchyma is visualized. ULTRASOUND: CLINICAL INFORMATION: As above. COMPARISON: 01/03/2022 left breast ultrasound. TECHNIQUE: Targeted sonographic evaluation was performed using a high frequency linear transducer. Attention to the upper outer quadrant left breast was given. Selected archived documentation. FINDINGS: LEFT BREAST: There is a mixture of fatty and fibroglandular tissue. No suspicious mass is seen. There is no pathologic acoustic shadowing. At the 2:00 axis, 4 cm from the nipple, there is a simple cyst present in the left breast measuring 7 x 9 x 5 mm. This is likely an incidental finding. No follow-up recommended. US/US breast LT limited mamm only IMPRESSION: There are no suspicious findings in the left breast. There is a benign cyst measuring 9 mm at the 2:00 axis, 4 cm from the nipple. No further follow-up recommended. Recommend the patient return to routine annual screening. OVERALL ASSESSMENT: Mammography: BI-RADS 2 - Benign Findings Ultrasound: BI-RADS 2 - Benign Findings RECOMMENDATION: 1 year F/U This patient's information was entered into a reminder system with a target due date for their next mammogram. .
== END 2024-03-24 14:24 | disposition home or self-care (01) ==
LOC: HO.MAMMO 14:23
PROVIDERS: PCP Family Medicine; Visit Provider Advanced Practice Midwife
DX: R92.8 Other abnormal and inconclusive findings on diagnostic imaging of breast (principal)
CPT/HCPCS: 76642; 77061; 77065

== ENCOUNTER → 2024-03-24 15:00 | Outpatient (BNV) | payer OTHER, SELFPAY | PROVIDERS: PCP Family Medicine; Visit Provider Radiology Diagnostic Radiology | DX: R92.8 Other abnormal and inconclusive findings on diagnostic imaging of breast (principal) | CPT/HCPCS: 76642; 77061; 77065 ==

== ENCOUNTER 2024-07-05 07:21 | Day surgery (SDC) | payer OTHER, SELFPAY ==
--- NOTE | 2024-07-02 09:21 | P.CONAN_ITS ---
Documented by User: Kristen Fontanez NP 07/02/24 09:22 HPI - Anesthesia Eval Consult details Narrative: 39yo F for Upper Endoscopy and Colonoscopy PMF Active Problems Active Problems: All Active Problems Abnormal mammogram of left breast (Acute) Raynauds phenomenon (Acute) Perianal candidiasis (Acute) External hemorrhoid (Acute) Post-COVID chronic shortness of breath (Acute) HTN (hypertension) (Acute) Abnormal finding on EKG (Acute) Chest discomfort (Acute) Persistent shortness of breath after COVID-19 (Acute) Cervical cancer screening (Acute) control counseling (Acute) Well woman exam with routine gynecological exam (Acute) Palpable mass of breast (Acute) Past Medical History Medical History (Updated 03/02/24 @ 09:43 by Antoinette Espino CNM) Post-COVID chronic shortness of breath Headache Allergic rhinitis HTN (hypertension) Family History Family History Father HTN (hypertension) Mother No problems noted. Maternal Grandmother CVD (cardiovascular disease) Maternal Grandfather Stroke Surgical History Surgical History [place] teeth removed Hx of section Social History Social History Household Members: Spouse Housing: House Alcohol intake: current Alcohol intake frequency: holidays/special occasions only Patient Tobacco Use Status: Former Tobacco user Years Smoked: 10 +/- Use of substances other than those prescribed or required for medical reasons: No Are you DNR?: No Advance Directives: No Advance Directives Information Provided: Yes Recently lost weight without trying: No Nutrition Risks: No Nutritional Risk Gender identity: Female Meds Allergies Allergy/AdvReac Type Severity Reaction Status Date / Time No Known Allergies Allergy Verified 01/16/24 15:41 Home Medications ?Medication ?Instructions ?Recorded ?Confirmed ?Last Taken ?Type qticopblwb-ftrkkrpblhdlt-trhhnygt 1 tab PO BID PRN 01/03/23 01/13/24 Unknown History 50 mg-325 mg-40 mg tablet Assessment and Plan Assessment Anesthesia Assessment: Chart Reviewed Documented by User: Aracelis Bean MD 07/05/24 08:14 [facility] Past Medical History Medical History (Updated 03/02/24 @ 09:43 by Antoinette Espino CNM) Post-COVID chronic shortness of breath Headache Allergic rhinitis HTN (hypertension) Family History Family History Father HTN (hypertension) Mother No problems noted. Maternal Grandmother CVD (cardiovascular disease) Maternal Grandfather Stroke Family history of problems with anesthesia: No Surgical History Surgical History [place] teeth removed Hx of section History of Problems with Anesthesia: No Social History Social History Household Members: Spouse Housing: House Alcohol intake: current Alcohol intake frequency: holidays/special occasions only Patient Tobacco Use Status: Former Tobacco user Years Smoked: 10 +/- Use of substances other than those prescribed or required for medical reasons: No Are you DNR?: No Advance Directives: No Advance Directives Information Provided: Yes Recently lost weight without trying: No Nutrition Risks: No Nutritional Risk Gender identity: Female Meds Allergies Allergy/AdvReac Type Severity Reaction Status Date / Time No Known Allergies Allergy Verified 01/16/24 15:41 Home Medications ?Medication ?Instructions ?Recorded ?Confirmed ?Last Taken ?Type hxmaxezqyk-stluexmkwsong-wadvcvlf 1 tab PO BID PRN 01/03/23 01/13/24 Unknown History 50 mg-325 mg-40 mg tablet Exam Airway Mallampati Class: II TM Dist: >3cm Neck ROM: Full Heart: rrr Lungs: cta Assessment and Plan Assessment Anesthesia Assessment: Anesthesia Plan Discussed Final Anesthetic Review Family History of Problems with Anesthesia: No History of Problems with Anesthesia: No NPO: Yes ASA Class: II Final Preanesthetic Review: No Changes in Pt Med Stat, Meds/Allgs Chart Reviewed and Consent Obtained/Reviewed Patient Risk: Low Procedure Risk: Intermediate Anesthetic Plan Anesthetic Plan: MAC: Disposition: Standard PACU
[2024-07-05 07:31] VITALS: BMI 26.6
[2024-07-05 07:51] LABS: UPreg QC Valid YES; Urine Pregnancy NEGATIVE (NEGATIVE)
[2024-07-05 07:58] VITALS: BP 142/89; PULSE 77; RESP 16; TEMP 36.1; O2SAT 100
[2024-07-05] MEDS: Lactated Ringers 1,000 ML 100 ML IVCONT (07:59)
--- NOTE | 2024-07-05 08:02 | P.HPSUR_ITS ---
Pre-Procedural Eval Section A - 24 Hr Update-Section A only Date of Service: 07/05/24 The patient is an INPATIENT: No The patient has been examined within 24 hours of the surgical procedure. The History & Physical has been completed within 30 days and I have reviewed it.: No Section B - Complete if H&P > 30 days Chief Complaint: Diarrhea, dysphagia, abd pain Relevant Family History (Specify if Yes): No Relevant Social History: Tobacco Use (Former smoker) Present Medications: see Short Stay Collaborative assessment Medical History: Significant History (Post-COVID chronic shortness of breath Headache Allergic rhinitis HTN (hypertension)) History of Previous Operations: Relevant previous surgery/procedure and date(s) ([place] teeth removed Hx of section) Allergies: Allergies Allergy/AdvReac Type Severity Reaction Status Date / Time No Known Allergies Allergy Verified 01/16/24 15:41 Review of Systems Sugical H&P ROS: Negative: Constitution, Cardiovascular and Respiratory and Yes, Specify: Gastrointestinal (abd pain and bloating) Exam Surgical H&P Exam: Normal: Heart, Normal: Lungs, Normal: Extremities and Normal: Abdomen Plan Diagnosis/Plan: Unchanged I have reviewed the history and physical and performed a pertinent physical examination on my patient. No changes have occurred unless specified. Time Spent With Patient Time: Total time managing care of this patient today ____ minutes.
--- NOTE | 2024-07-05 08:42 | P.OPN-COLO_ITS ---
Colonoscopy Operative Note Operative Note Date of Service: 07/05/24 Narrative: FLEXIBLE TRANSORAL UPPER GASTROINTESTINAL ENDOSCOPY WITH BIOPSIES AND COLONOSCOPY TILL CECUM WITH BIOPSIES AND SNARE POLYPECTOMY Pre-op diagnosis: Post prandial abdominal pain, bloating and diarrhea Post-op diagnosis: Gastritis, Diverticulosis Endoscopist:Sirisha Fletcher MD Anesthesia:?MAC UPPER ENDOSCOPY Consent: Indications for the procedure and potential complications of bleeding, perforation, reaction to medications and missed diagnosis were discussed with the patient and informed consent was obtained. Instrument: Olympus GIF H 190 mid size upper endoscope Monitoring: Vital signs and clinical assessment, continuous EKG monitoring, Pulse oximetry, Carbon Dioxide monitoring and blood pressure monitoring were done throughout the procedure. Procedure: The patient was placed in the left lateral decubitis position and pre-procedure medications were administered and a bite block was placed. The endoscope was inserted into the mouth and advanced under direct vision to the third part of duodenum. A careful inspection was made as the upper endoscope was withdrawn including a retroflexed examination of the proximal stomach; Findings and interventions are described below. Findings: Larynx: Normal Esophagus: Mildly tortuous esophagus without stricture or ring. GE junction at 40 cms. No esophagitis or Alvarado's. Stomach: Moderate diffuse gastric erythema - biopsies were obtained from the antrum to check for H pylori. Grade 2 flap valve on retroflexed examination of the cardia. Duodenum: Normal bulb and descending duodenum Biopsies were obtained from descending duodenum to check for celiac sprue Intervention: Biopsies as noted above COLONOSCOPY PROCEDURE NOTE Instrument: Olympus CF H 190 L variable stiffness adult colonoscope Monitoring: Vital signs and clinical assessment, intermittent blood pressure monitoring, continuous EKG monitoring, Pulse oximetry and Carbon Dioxide monitoring were done throughout the procedure. Please see anesthesia flowsheet. Colon withdrawl time was 14 minutes. Procedure: The patient was placed in the left lateral decubitis position and pre-procedure medications were administered. After a digital rectal examination of the ano-rectum, the video colonoscope was inserted into the rectum and advanced through the colon to the cecum. The colonoscope was slowly withdrawn in a retrograde panoramic fashion and the colon mucosa was carefully examined including a retroflexed view of the rectum. Findings and interventions are described below. Procedure Difficulty: without difficulty Findings: Terminal Ileum: Not evaluated Cecum: Normal Ascending Colon: Normal Transverse Colon: Normal Descending Colon: Normal Sigmoid Colon: Mild diverticulosis Rectum: Normal Ano-rectum: Normal Colon preparation: Excellent. [place] Bowel Preparation Scale Right colon; 3 Transverse colon: 3 Left colon; 3 (0 = Unprepared colon segment with mucosa not seen due to solid stool that cannot be cleared. 1 = Portion of mucosa of the colon segment seen, but other areas of the colon segment not well seen due to staining, residual stool and/or opaque liquid. 2 = Minor amount of residual staining, small fragments of stool and/or opaque liquid, but mucosa of colon segment seen well. 3 = Entire mucosa of colon segment seen well with no residual staining, small fragments of stool or opaque liquid) Impression and Post Procedure Diagnosis: Endoscopy Findings: ESOPHAGUS: Mildly tortuous esophagus without stricture or ring STOMACH: Moderate diffuse gastric erythema - biopsies were obtained from the antrum to check for H pylori. DUODENUM: Normal - biopsied to check for celiac sprue Colonoscopy Findings: No polyps were detected And biopsies were obtained from right and left colon to check for microscopic colitis Mild diverticulosis seen in the sigmoid colon Plan: Pt has a FU appointment on 07/12/24 with Dia Guthrie NP Repeat Colonoscopy in 10 years if colon biopsies are normal. Above findings were reviewed with the patient and relevant handouts were given and the discharge area. BIOPSIES SHOWED: A. Small bowel, biopsy: Small-bowel/duodenal mucosa with preserved villi and no specific change; no evidence of celiac disease. B. Gastric antrum, biopsy: Gastric antral mucosa with mild reactive changes and focal minimal chronic inactive inflammation; negative for intestinal metaplasia and dysplasia. C. Colon, right, biopsy: Colonic mucosa with minor crypt distortion, otherwise no specific change; no evidence of microscopic colitis. D. Colon, left, biopsy: Colonic mucosa with lymphoid aggregates and no specific change; no evidence of microscopic colitis. Comment: (B): Immunostain for H. pylori were negative
[2024-07-05 09:11] VITALS: BP 117/78; PULSE 72; RESP 16; TEMP 36.1; O2SAT 98
[2024-07-05 09:26] VITALS: BP 130/94; PULSE 68; RESP 16; TEMP 36.1; O2SAT 98
== END 2024-07-05 10:11 | disposition home or self-care (01) ==
PROVIDERS: Nurse Practitioner; PCP Family Medicine; Visit Provider Internal Medicine Gastroenterology
PROC: (CPT 45380; principal; 2024-07-05 08:30)
DX: R10.13 Epigastric pain (principal); R14.0 Abdominal distension (gaseous); K58.2 Mixed irritable bowel syndrome; K57.30 Diverticulosis of large intestine without perforation or abscess without bleeding; R13.14 Dysphagia, pharyngoesophageal phase; K22.89 Other specified disease of esophagus; K29.70 Gastritis, unspecified, without bleeding; I10 Essential (primary) hypertension; Z83.719 Family history of colon polyps, unspecified
CPT/HCPCS: 45380; 43239; 81025; 88305; 88342; J2704

== ENCOUNTER → 2024-07-05 07:21 | Outpatient (BNV) | payer OTHER, SELFPAY | PROVIDERS: PCP Family Medicine; Visit Provider Internal Medicine Gastroenterology | DX: K29.70 Gastritis, unspecified, without bleeding (principal); K57.30 Diverticulosis of large intestine without perforation or abscess without bleeding | CPT/HCPCS: 43239; 45378 ==

== ENCOUNTER 2024-08-17 16:16 | Outpatient (AMB) | payer OTHER, SELFPAY ==
[2024-08-17 16:20] VITALS: BP 156/104; PULSE 66; O2SAT 100; BMI 28.4
--- NOTE | 2024-08-17 16:20 | A.OFFVIS_ITS ---
Vital Signs 08/17/24 16:20 Height 5 ft 7 in Weight 181 lb 3.52 oz BMI 28.4 BP 156/104 H Blood Pressure Location Rt brachial Position Sitting Pulse 66 Pulse Source Pulse Oximeter Pulse Oximetry (%) 100 Oxygen Delivery Method Room Air Intake Visit Reasons: Post op FUV. Discuss ongoing sx. Intake Note: Melba presents in office today for a scheduled FUV. CC: 07/05 w/ Dr. Fletcher. Pt denies any complications post op. Pt is here to discuss their results. Pt reports that they are still having chronic sx. No additional concerns at this time. Pt would like to talk about their regimen and how to manage their sx going forward. 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 Discuss ongoing sx.: Details: LAST VISIT External hemorrhoid Epigastric abdominal pain Postprandial abdominal bloating IBS (irritable bowel syndrome) Dysphagia Plan Patient will continue taking Nexium in the morning and Citrucel, however patient will try to stop Citrucel for few days and see if her symptoms of dry mouth will go away and then she will do the same thing stopping Nexium. Discussed with patient avoiding dietary triggers and late night snacking. Staying upright for minimum 3 hours after meals discussed with patient. Patient will be sent for upper endoscopy to evaluate for esophagitis, gastritis, peptic or gastric ulcers, Alvarado's, Schatzki ring. Symptoms of dysphagia continues at times. Patient had normal calprotectin and normal CRP unlikely IBD. However patient does have abdominal pain and bloating, could experience inability to empty due to diverticular disease. Patient continues with loose stools postprandially. She will go for diagnostic colonoscopy. Patient denies any cardiac or respiratory symptoms. Not on any anticoagulation medication. No history of sleep apnea. No issues with anesthesia in the past. I will see patient after the procedure, sooner on as needed basis. What to expect before during and after procedure di scussed with patient. Stressed the importance of clear liquid diet day before procedure as well as good bowel prep. Patient reports that her just had a colonoscopy and she was helping him to go through that when he was prepping for his procedure. Patient is agreeable to current plan of care and verbalizes understanding of instructions. She was given the opportunity to ask questions and all questions answered. ? Thank you for allowing me to participate in her care Medications New bisacodyl (Dulcolax (bisacodyl)) take 4 tabs at noon the day before your colonoscopy 20 mg (4 x 5 mg) PO ONCE 1 day 4 tabs 0RF Z12.11 polyethylene glycol 3350 (Miralax) As directed by gastroenterology department at [facility] 238 grams PO ONCE 238 grams 0RF Z12.11 UPPER ENDOSCOPY AND COLONOSCOPY Findings: Larynx: Normal Esophagus: Mildly tortuous esophagus without stricture or ring. GE junction at 40 cms. No esophagitis or Alvarado's. Stomach: Moderate diffuse gastric erythema - biopsies were obtained from the antrum to check for H pylori. Grade 2 flap valve on retroflexed examination of the cardia. Duodenum: Normal bulb and descending duodenum Biopsies were obtained from descending duodenum to check for celiac sprue Intervention: Biopsies as noted above COLONOSCOPY PROCEDURE NOTE Instrument: Pounce CF H 190 L variable stiffness adult colonoscope Monitoring: Vital signs and clinical assessment, intermittent blood pressure monitoring, continuous EKG monitoring, Pulse oximetry and Carbon Dioxide monitoring were done throughout the procedure. Please see anesthesia flowsheet. Colon withdrawl time was 14 minutes. Procedure: The patient was placed in the left lateral decubitis position and pre-procedure medications were administered. After a digital rectal examination of the ano-rectum, the video colonoscope was inserted into the rectum and advanced through the colon to the cecum. The colonoscope was slowly withdrawn in a retrograde panoramic fashion and the colon mucosa was carefully examined including a retroflexed view of the rectum. Findings and interventions are described below. Procedure Difficulty: without difficulty Findings: Terminal Ileum: Not evaluated Cecum: Normal Ascending Colon: Normal Transverse Colon: Normal Descending Colon: Normal Sigmoid Colon: Mild diverticulosis Rectum: Normal Ano-rectum: Normal Colon preparation: Excellent. [place] Bowel Preparation Scale Right colon; 3 Transverse colon: 3 Left colon; 3 (0 = Unprepared colon segment with mucosa not seen due to solid stool that cannot be cleared. 1 = Portion of mucosa of the colon segment seen, but other areas of the colon segment not well seen due to staining, residual stool and/or opaque liquid. 2 = Minor amount of residual staining, small fragments of stool and/or opaque liquid, but mucosa of colon segment seen well. 3 = Entire mucosa of colon segment seen well with no residual staining, small fragments of stool or opaque liquid) Impression and Post Procedure Diagnosis: Endoscopy Findings: ESOPHAGUS: Mildly tortuous esophagus without stricture or ring STOMACH: Moderate diffuse gastric erythema - biopsies were obtained from the antrum to check for H pylori. DUODENUM: Normal - biopsied to check for celiac sprue Colonoscopy Findings: No polyps were detected And biopsies were obtained from right and left colon to check for microscopic colitis Mild diverticulosis seen in the sigmoid colon Plan: Repeat Colonoscopy in 10 years if colon biopsies are normal. Above findings were reviewed with the patient and relevant handouts were given and the discharge area. BIOPSIES SHOWED: A. Small bowel, biopsy: Small-bowel/duodenal mucosa with preserved villi and no specific change; no evidence of celiac disease. B. Gastric antrum, biopsy: Gastric antral mucosa with mild reactive changes and focal minimal chronic inactive inflammation; negative for intestinal metaplasia and dysplasia. C. Colon, right, biopsy: Colonic mucosa with minor crypt distortion, otherwise no specific change; no evidence of microscopic colitis. D. Colon, left, biopsy: Colonic mucosa with lymphoid aggregates and no specific change; no evidence of microscopic colitis. Comment: (B): Immunostain for H. pylori were negative TODAY'S VISIT Patient is here today for follow-up and to discuss upper endoscopy and colonoscopy. Patient denies any ill effects from the prep, anesthesia or procedure itself. Patient reports that she follow instructions about her prep and her prep was excellent. Patient admits that she felt great after she did the prep. Currently patient will have a on and off symptoms of postprandial loose stools. Patient tries to stay away from certain food and is unable to eat much at work as she might have those symptoms. Patient feels like she does not empty her bowels completely when she does have a bowel movement. Upper endoscopy and colonoscopy results discussed with patient as well as biopsy results. No H pylori found. Patient had normal colonoscopy with no polyps and no evidence of microscopic colitis found from biopsies to left and right colon. Patient does admit that sometimes when she is very anxious she will have abdominal pain and cramping and then she will have bowel movement. [facility] Medical History Post-COVID chronic shortness of breath Headache Allergic rhinitis HTN (hypertension) Surgical History [place] teeth removed Hx of section Family History Father HTN (hypertension) Mother No problems noted. Maternal Grandmother CVD (cardiovascular disease) Maternal Grandfather Stroke Social History Household Members: Spouse Housing: House Alcohol intake: current Alcohol intake frequency: holidays/special occasions only Patient Tobacco Use Status: Former Tobacco user Years Smoked: 10 +/- Gender identity: Female Female Reproductive History Menstrual Age of Menarche: 12 Review of Systems Const Denies weight gain and Denies weight loss ENT Reports no additional complaints, Denies dysphagia and Denies odynophagia Card Reports no additional complaints Resp Reports no additional complaints GI Reports abdominal pain (Cramping), Denies belching, Denies melena, Reports bloating, Reports constipation, Denies dysphagia, Denies excessive flatus, Denies dyspepsia, Denies heartburn, Denies diarrhea, Reports loose stools, Reports nausea, Denies odynophagia and Denies vomiting Reports no additional complaints Musc Reports no additional complaints Neuro Reports no additional complaints Psych Reports no additional complaints Endo Reports no additional complaints Physical Exam Vital Signs: Last Vital Signs Pulse 66 08/17/24 16:20 BP 156/104 H 08/17/24 16:20 Pulse Ox 100 08/17/24 16:20 Oxygen Delivery Method Room Air 08/17/24 16:20 BMI result Body Mass Index 28.4 Const General: healthy appearing, no acute distress and well developed Nutritional Appearance: well nourished Orientation/consciousness: patient oriented x3 Resp Effort & Inspection: normal respiratory effort, able to speak in complete sentences, no tracheal deviation and symmetric chest movement Auscultation: clear to auscultation bilaterally Cardio Rate: regular rate GI Inspection: Yes normal to inspection and No distended Palpation (GI): Soft to palpation, not firm, nontender and No hepatosplenomegaly present Auscultation: normal bowel sounds General: Yes no CVA tenderness Back/Spine/Pelvis Back: no CVA tenderness Skin General skin exam: elasticity normal, turgor normal and dry skin Neuro General: patient oriented x3 Psych Appearance: grossly normal Mental Status: mental status grossly normal Assessment & Plan Assessment & Plan (1) External hemorrhoid: Code(s): K64.4 - Residual hemorrhoidal skin tags Category: Medical (2) Epigastric abdominal pain: Code(s): R10.13 - Epigastric pain (3) Postprandial abdominal bloating: Code(s): R14.0 - Abdominal distension (gaseous) (4) IBS (irritable bowel syndrome): Code(s): K58.9 - Irritable bowel syndrome, unspecified Qualifiers: Irritable bowel syndrome type: with both diarrhea and constipation Qualified Code(s): K58.2 - Mixed irritable bowel syndrome (5) Dysphagia: Code(s): R13.10 - Dysphagia, unspecified Qualifiers: Dysphagia type: unspecified Qualified Code(s): R13.10 - Dysphagia, unspecified Plan Patient no longer is taking Nexium. Her symptoms have subsided. Occasionally uses Tums on as needed basis. Patient is trying to avoid dietary triggers. Her symptoms of postprandial loose stools, abdominal bloating and cramping is related to IBS with both diarrhea and constipation. Although diarrhea is more frequent I believe that patient does not empty her bowels completely hence has the diarrhea. Patient was encouraged to take fiber. Diverticulosis was found in sigmoid colon. Patient can also take probiotics daily. Discussed with patient following up low FODMAP diet. Patient does have list at home and will try to use that. Patient can try to take magnesium to help her relax. Patient can get that [id number]. However we discussed that magnesium can also cause loose stools and ask patient to take smaller dose. Patient will try to take Dulcolax if she does not feel like she empties her bowels completely. Follow-up in our office on as needed basis. Patient feels like she has a understanding and better control of her situation now. Colonoscopy in 10 years, sooner if clinically necessary. Patient has no family history of CRC. Patient is agreeable to current plan of care and verbalizes understanding of instructions. She was given the opportunity to ask questions and all questions answered. Thank you for allowing me to participate in her care Medications: New bisacodyl (Dulcolax (bisacodyl)) 10 mg (2 x 5 mg) PO BEDTIME 180 tabs 2RF Coding Level of Care Code Est Pt Level 4 (95798) Diagnoses External hemorrhoid K64.4 Epigastric abdominal pain R10.13 Postprandial abdominal bloating R14.0 Irritable bowel syndrome with both constipation and diarrhea K58.2 Irritable bowel syndrome type: with both diarrhea and constipation Dysphagia, unspecified type R13.10 Dysphagia type: unspecified Time Spent (min) 35 Comment 25 minutes spent with patient and additional 10 minutes spent reviewing her records
== END 2024-08-17 17:00 ==
PROVIDERS: PCP Family Medicine; Visit Provider Nurse Practitioner Family
DX: K64.4 Residual hemorrhoidal skin tags (principal); R10.13 Epigastric pain; R14.0 Abdominal distension (gaseous); K58.2 Mixed irritable bowel syndrome; R13.10 Dysphagia, unspecified
CPT/HCPCS: 99214

== ENCOUNTER → 2024-08-17 16:16 | Outpatient (BNVA) | payer OTHER, SELFPAY | PROVIDERS: PCP Family Medicine; Visit Provider Nurse Practitioner Family | DX: K64.4 Residual hemorrhoidal skin tags (principal); R10.13 Epigastric pain; R14.0 Abdominal distension (gaseous); K58.2 Mixed irritable bowel syndrome; R13.10 Dysphagia, unspecified | CPT/HCPCS: 99212 ==

== ENCOUNTER 2025-01-18 09:35 | Outpatient (REF) | payer SELFPAY ==
--- OUTSIDE RECORDS SUMMARY | 2025-01-18 13:18 | XMS_ITS | Encounter Summary ---
Author Organization [facility] Address [address] [facility] [address] [place] [address] Phone Care Team Providers Care Senior Program Planner Name Role Phone Tovar, Gary Paulette BRAND Primary Care Provider [phone] Encounter Details Date Type Department Care Team (Late Contact Info) Description 03/28/2022 Documentation Only [facility] [address] [facility] [address] [place] [address] True Nesbitt MD [address] [place] [address], [address] [place] [address] Social History Tobacco Use Types Packs/Day Years [...] Visit [facility] [address] [address] Caryl Martínez ARNP 1135 [facility] [address] [place] [address] documented as of this encounter Visit Diagnoses Not on filedocumented in this encounter Care Teams Senior Program Planner Relationship Specialty Start Date End Date Iglesia Tovar DO 24 [place] [address] PCP - General 11/27/20 documented as of this encounter
--- OUTSIDE RECORDS SUMMARY | 2025-01-18 13:18 | XMS_ITS | Encounter Summary ---
Author Organization [facility] [place] Address [address] [facility] [address] [place] [address] Phone Care Team Providers Care Cardiology Nurse Practitioner Name Role Phone Tovar, Gary Paulette BRAND Primary Care Provider [phone] Encounter Details Date Type Department Care Team (Late Contact Info) Description 03/28/2022 Documentation Only [facility] [address] [facility] [address] [place] [address] True Nesbitt MD [address] [place] [address], [address] [place] [address] Social History Tobacco Use Types Packs/Day Years [...] Visit [facility] [address] [address] Caryl Martínez ARNP 2869 [facility] [address] [place] [address] documented as of this encounter Visit Diagnoses Not on filedocumented in this encounter Care Teams Cardiology Nurse Practitioner Relationship Specialty Start Date End Date Iglesia Tovar DO [address] [place] [address] PCP - General 11/27/20 documented as of this encounter
--- OUTSIDE RECORDS SUMMARY | 2025-01-18 13:18 | XMS_ITS | Clinical Summary ---
Author Organization [facility] Address [address] [address] Phone Care Team Providers Care Electric Organ Inspector And Repairer Name Role Phone Iglesia Tovar Primary Care Provider [phone] Allergies No known active allergies Medications B [...] Orders Only [facility] [address] [place] [address] Caryl Martínez ARNP from Last 3 [...] Office Visit [facility] [address] [address] Caryl Martínez ARNP [address] [address] Health Maintenance Due Date Last [...] Glucose 81 70 - 99 mg/dL [facility] BUN 19 6 - 24 mg/dL [facility] Creatinine 0.84 0.57 - 1.00 mg/dL [facility] eGFR CKD-EPI CR 2020 90 >59 mL/min/1.7 3 [facility] BUN/Creatinine Ratio 23 9 - 23 [facility] Sodium 141 134 - 144 mmol/L [facility] Potassium 4.4 3.5 - 5.2 mmol/L [facility] Chloride 102 96 - 106 mmol/L [facility] Bicarbonate (CO2) 23 20 - 29 mmol/L [facility] Calcium 9.6 8.7 - 10.2 mg/dL [facility] 11/25/2024 10:4 2 AM EST 11/25/2024 Caryl ZELAYA LAB BLOOD ORDERABLES Final Result [facility] [address] [place] [address] from Last 3 Months Insurance [employer] Care Teams Electric Organ Inspector And Repairer Relationship Specialty Start Date End Date Iglesia Tovar DO [address] [place] [address] PCP - General 11/27/20
[2025-01-21 14:57] LABS: HPV Genotype 16 Negative (Negative); HPV Genotype 18 Negative (Negative); HPV High Risk Negative (Negative)
== END 2025-01-18 09:36 | disposition home or self-care (01) ==
LOC: HO.LNP 09:35
PROVIDERS: PCP Family Medicine; Visit Provider Advanced Practice Midwife
DX: Z01.419 Encounter for gynecological examination (general) (routine) without abnormal findings (principal); I10 Essential (primary) hypertension
CPT/HCPCS: 87626; 88175; 99396; 99459

== ENCOUNTER 2025-01-18 09:35 | Outpatient (AMB) | payer OTHER, SELFPAY ==
[2025-01-18 09:36] VITALS: BP 126/80; BMI 27.4
--- NOTE | 2025-01-18 09:36 | MHC.OFFVIS ---
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 Supply Clerk Required: No Central Supply Clerk Services: Central Supply Clerk Present Information Interpreted: clinical only Intake Clerk: Intake Clerk Present Allergies No Known Allergies Allergy (Verified 01/18/25 09:39) Medication List - Last Reconciled 01/18/25 by Antoinette Espino CNM bisacodyl (Dulcolax (bisacodyl)) 10 mg (2 x 5 mg) PO BEDTIME cybtymcxel-mlqupqyzpzzto-qtyx 50-325-40 mg 1 tab PO BID PRN esomeprazole magnesium (Nexium 24HR) 20 mg PO DAILY etonogestrel-ethinyl estradiol 0.12-0.015 mg/24 hr (EluRyng) 1 vag ring vaginal Q4W methylcellulose (laxative) (Citrucel) 500 mg PO DAILY Is last menstrual period known: Yes Last menstrual period: 12/27/24 HPI HPI CLINICAL APPLICATION SPECIALIST annual exam: Details: 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 She is on the [employer] and it has been working well for her and her blood pressure is been doing well and is under good control and she would like to continue on the [employer] she has no concerns at all about STIs she is monogamous with her . They are going out to breakfast today as part of a tradition. Her 21-year-old daughter is doing well in college and studying to be a manager mechanical and works part-time in [employer] in the field. She had her 1st mammogram last year there was something that needed is another look because of her dense breasts and she had an ultrasound and it was fine she would be due for her next 1 this march.. She takes extra collagen that she buys online for her hair and nails that she says helps her out another ways as well. [facility] Medical History Post-COVID chronic shortness of breath Headache Allergic rhinitis HTN (hypertension) Surgical History [place] teeth removed Hx of section Family History Father HTN (hypertension) Mother No problems noted. Maternal Grandmother CVD (cardiovascular disease) Maternal Grandfather Stroke Social History Household Members: Spouse Housing: House Alcohol intake: current Alcohol intake frequency: holidays/special occasions only Patient Tobacco Use Status: Former Tobacco user Years Smoked: 10 +/- Gender identity: Female Female Reproductive History Menstrual Age of Menarche: 12 Duration of menses: 3-5 days Date of last menstrual period: 12/27/24 control method: vaginal ring Total pregnancies: 1 Full term: 1 Date of last pap smear: 12/20/21 (negative) History of abnormal pap smear: Yes (2011, abn.) Date of Mammogram: 03/24/24 ([facility] Physical Exam Vital Signs: BMI result Body Mass Index 27.4 Const General: healthy appearing, comfortable, no acute distress, well developed and alert Nutritional Appearance: average body habitus Orientation/consciousness: patient oriented x3 Limitations: no limitations HEENT Head: Yes normocephalic Neck Neck: Yes normal visual inspection Chest Chest palpation & inspection: normal inspection of the chest Breast/axilla inspection: normal inspection of the breasts and normal inspection of the axillae Breast/axilla palpation: normal palpation of the breasts and normal palpation of the axillae Resp Effort & Inspection: normal respiratory effort GI Inspection: Yes normal to inspection, No Abdominal wall edema and No distended Palpation (GI): Soft to palpation and nontender Other: Normal external exam vagina is pink and moist cervix nulliparous pink smooth healthy appearing mobile nontender uterus midposition to anteverted mobile nontender adnexa nontender good tone with Kegel NuvaRing in place. General: Yes bladder normal to palpation External Female Exam: normal external appearance and normal appearance of the urethra Speculum Exam - Vagina: normal appearance of the vagina, normal palpation and normal vaginal discharge Speculum Exam - Cervix: normal appearance of the cervix, normal palpation and nontender Bimanual exam- vagina & uterus: normal bimanual exam, normal palpation, uterine size normal, bladder normal to palpation, consistency normal, normal palpation, uterine mobility normal, uterine shape normal, No Cervical tenderness present, non-tender and no cervical motion tenderness Bimanual Exam- Adnexa, other: normal adnexae, no masses, normal and No adnexal tenderness Neuro General: patient oriented x3 Results Reviewed Results Reviewed: Name: Melba Quevedo Age/Sex: 36/F Attending: Antoinette Espino CNM : 1985 Submitted by: Antoinette Espino CNM Copies to: MR #: [id number] Status: DEP REF Collected: 12/20/21 Location: .LAB Received: 12/26/21 Interpretation General Category: Negative for intraepithelial lesion/ malignancy. Adequacy: Endocervical component present. Interpretation: Inflammation with associated cellular changes. HPV mRNA E6/E7: Not Detected This assay detects E6/E7 viral messenger RNA (mRNA) from 14 high-risk HPV types (16, 18, 31, 33, 35, 39, 45, 51, 52, 56, 58, 59, 66, 68) HPV testing performed by [facility], [place], [place]. See reference laboratory portion of the EMR for entire report. Clinical Information LMP: 11/19/21 Previous PAP test: 2019, WNL Other history: 2011, Abnormal pap Material Received ThinPrep- Cervical Electronically Signed By: Marcos Pinedo MD 01/09/22 1254 The Pap Test is a screening procedure with the inherent possibility of both false negative and false positive results. Results should be interpreted in the context of historic and current clinical findings. Reliability of the Pap Test is enhanced by performing the test on a regular repetitive basis. Patient: Melba Quevedo Page 1 of 1 Patient: Melba Quevedo MR#: [id number] : 1985 Acct:[id number] Age/Sex: 39 / F ADM Date: 03/24/24 Loc: HO.MAMMO Attending Dr: Antoinette Espino CNM Ordering Physician: Antoinette Espino CNM Date of Service: 03/24/24 Procedure(s): US breast LT limited mamm only Accession Number(s): [id number] cc: Iglesia Tovar DO; Antoinette Espino CNM~ EXAMINATION: MM DIAGNOSTIC DIGITAL BREAST TOMOSYNTHESIS, LEFT US BREAST LIMITED, LEFT MAMMOGRAPHY: CLINICAL INFORMATION: Evaluate one view asymmetry superior left breast seen on left MLO only. No correlate on CC view. COMPARISON: Mammography: 02/23/2024 screening examination. 01/03/2022 Baseline exam. TECHNIQUE: Digital breast tomosynthesis is performed in the following views: Full-field left digital mediolateral view, and spot compression 3-D view left MLO projection. This was followed by targeted left breast ultrasound. FINDINGS: The breasts are extremely dense, which lowers the sensitivity of mammography (ACR BI-RADS breast composition Category d). Diagnostic views demonstrate no persistent masses, suspicious calcifications, or areas of architectural distortion in the left breast. The one view asymmetry essentially effaces on spot compression view. Only extremely dense breast parenchyma is visualized. ULTRASOUND: CLINICAL INFORMATION: As above. COMPARISON: 01/03/2022 left breast ultrasound. TECHNIQUE: Targeted sonographic evaluation was performed using a high frequency linear transducer. Attention to the upper outer quadrant left breast was given. Selected archived documentation. FINDINGS: LEFT BREAST: There is a mixture of fatty and fibroglandular tissue. No suspicious mass is seen. There is no pathologic acoustic shadowing. At the 2:00 axis, 4 cm from the nipple, there is a simple cyst present in the left breast measuring 7 x 9 x 5 mm. This is likely an incidental finding. No follow-up recommended. US/US breast LT limited mamm only IMPRESSION: There are no suspicious findings in the left breast. There is a benign cyst measuring 9 mm at the 2:00 axis, 4 cm from the nipple. No further follow-up recommended. Recommend the patient return to routine annual screening. OVERALL ASSESSMENT: Mammography: BI-RADS 2 - Benign Findings Ultrasound: BI-RADS 2 - Benign Findings RECOMMENDATION: 1 year F/U This patient's information was entered into a reminder system with a target due date for their next mammogram. . Dictated By: Pankaj Rosado MD Signed By: <Electronically signed by Pankaj Rosado MD in OV> 03/24/24 1535 DD/ 1525 TD/TT: Coverer: Assessment & Plan Assessment & Plan (1) Well woman exam with routine gynecological exam: Code(s): Z01.419 - Encounter for gynecological examination (general) (routine) without abnormal findings Category: Medical (2) Cervical cancer screening: Comment: (JAZZMINE x1 2012 colpo afterwards was negative and all Paps after =negative. ; Pap equals negative with negative HPV Code(s): Z12.4 - Encounter for screening for malignant neoplasm of cervix Category: Medical (3) HTN (hypertension): Comment: not today. discussed. she is watching it. discussed d/c of nuva ring if high bp returns.... Code(s): I10 - Essential (primary) hypertension Category: Medical (4) Breast cancer screening: Code(s): Z12.39 - Encounter for other screening for malignant neoplasm of breast Category: Medical Plan -----Discussed in this visit the following: healthy balanced diet, regular and consistent exercise, getting recommended health screens, doing the best she can for her particular health concerns, kegel exercises, pap smear screening and followup recommendations, mammography screening and SBE, normal changes in cycles in her life stage--- . She is keeping an eye on her blood pressure. She is doing fairly well with it these days she wants to continue with the NuvaRing it is working well for her. Only abnormal Pap smear was in 2011 JAZZMINE 1 colpo afterwards and all Paps after were negative last Pap was negative in 2021 Pap with HPV code testing done today. She will be scheduling her mammogram in March for follow-up from last year's.. RTC 1 year. Yearly mammogram ( rtc 1 yr Medications: Refilled etonogestrel-ethinyl estradiol 0.12-0.015 mg/24 hr (EluRyng) place ring in vagina and leave in place for 3w of a 4 w cycle, according to instructions; report any BP elevations 1 vag ring vaginal Q4W 3 rings 4RF Coding Level of Care Code Est Pt Prev Care 40-64y(92634) Diagnoses Well woman exam with routine gynecological exam Z01.419 Cervical cancer screening Z12.4 HTN (hypertension) I10 Breast cancer screening Z12.39
--- OUTSIDE RECORDS SUMMARY | 2025-01-18 10:47 | XMS_ITS | Encounter Summary ---
Author Organization [facility] Address [address] [facility] [address] [place] [address] Phone Care Team Providers Care Equipment Processor Name Role Phone Tovar, Gary Paulette BRAND Primary Care Provider [phone] Encounter Details Date Type Department Care Team (Late Contact Info) Description 03/28/2022 Documentation Only [facility] [address] [facility] [address] [place] [address] True Nesbitt MD [address] [place] [address], [address] [place] [address] Social History Tobacco Use Types Packs/Day Years Used Date Smoking Tobacco: Former Smokeless Tobacco: Former Alcohol Use Standard Drinks/Week Comments Yes 0 (1 standard drink = 0.6 oz pur e alcohol) 1-3 time per month Comments Unknown Sex and Gender Information Value Date Recorded Sex Assigned at Not on file Legal Sex Female 4:45 PM EST Gender Identity Not on file Sexual Orientation Not on file COVID-19 Exposure Response Date Recorded In the last month, have you been in contact with someone who was confirmed or suspected to have Coronavirus / COVID-19? No / Unsure 03/28/2022 1:51 PM EDT documented as of this encounter Plan of Treatment Upcoming Encounters Date Type Department Care Team (Late st Contact Info) Description 03/23/2025 4:30 PM EDT Office Visit [facility] [address] [address] Caryl Martínez ARNP 9653 [facility] [address] [place] [address] documented as of this encounter Visit Diagnoses Not on filedocumented in this encounter Care Teams Equipment Processor Relationship Specialty Start Date End Date Iglesia Tovar DO [address] [place] [address] PCP - General 11/27/20 documented as of this encounter
--- OUTSIDE RECORDS SUMMARY | 2025-01-18 10:47 | XMS_ITS | Encounter Summary ---
Author Organization [facility] [place] Address [address] [facility] [address] [place] [address] Phone Care Team Providers Care Black Top Roller Name Role Phone Tovar, Gary Paulette BRAND Primary Care Provider [phone] Encounter Details Date Type Department Care Team (Late Contact Info) Description 03/28/2022 Documentation Only [facility] [address] [facility] [address] [place] [address] True Nesbitt MD [address] [place] [address], [address] [place] [address] Social History Tobacco Use Types Packs/Day Years [...] Visit [facility] [address] [address] Caryl Martínez ARNP 0051 [facility] [address] [place] [address] documented as of this encounter Visit Diagnoses Not on filedocumented in this encounter Care Teams Black Top Roller Relationship Specialty Start Date End Date Iglesia Tovar DO [address] [place] [address] PCP - General 11/27/20 documented as of this encounter
--- OUTSIDE RECORDS SUMMARY | 2025-01-18 10:47 | XMS_ITS | Clinical Summary ---
Author Organization [facility] Address [address] [address] Phone Care Team Providers Care Bill Cutter Name Role Phone Iglesia Tovra Primary Care Provider [phone] Allergies No known active allergies Medications B Complex Vitamins (VITAMIN B COMPLEX 100 IJ) Take 1 tablet by mouth 1 (one) time each day Active etonogestrel-et hinyl estradiol (NUVARING) 0.12-0.015 MG/24HR vaginal ring INSTILL 1 RING VAGINALLY AND LEAVE IN PLACE FOR 3 WEEKS OF A 4 WEEK CYCLE 2 Active butalbital-acet aminophen-caffe ine (FIORICET, ESGIC) 50-325-40 MG per tablet 3 Active hydroCHLOROthia zide 12.5 MG tabletIndicatio ns:Hypertension Take 1 tablet (12.5 mg total) by mouth 1 (one) time each day 30 tablet 11 4 09/23/20 25 Active Rimegepant Sulfate (Nurtec) 75 MG tablet dispersibleIndi cations:Migrain e Take 1 tablet by mouth 1 (one) time each day if needed Active Active Problems Problem Noted Date Diagnosed Date Migraine 03/26/2022 Hypertension 03/26/2022 Encounters Date Type Department Care Team Description 11/25/2024 Orders Only [facility] [address] [place] [address] Caryl Martínez ARNP from Last 3 Months Immunizations Name Administration Dates Next Due Pfizer SARS-COV-2 02/28/2021,02/07/2021 Family History Medical History Relation Comments Hypertension Father Relation Status Comments Father Social History Tobacco Use Types Packs/Day Years Used Date Smoking Tobacco: Former Smokeless Tobacco: Former Tobacco Cessation:Counseling Given: Not Answered Alcohol Use Standard Drinks/Week Comments Yes 0 (1 standard drink = 0.6 oz pur e alcohol) 1-3 time per month Comments Unknown Sex and Gender Information Value Date Recorded Sex Assigned at Not on file Legal Sex Female 4:45 PM EST Gender Identity Not on file Sexual Orientation Not on file Last Filed Vital Signs Vital Sign Reading Time Taken Comments Blood Pressure 138/100 09/23/2024 4:45 PM EST Pulse 72 09/23/2024 4:45 PM EST Temperature - - Respiratory Rate - - Oxygen Saturation 99% 05/26/2023 4:13 PM EDT Inhaled Oxygen Concentration - - Weight 80.3 kg (177 lb) 09/23/2024 4:45 PM EST Height - - Body Mass Index - - Plan of Treatment Upcoming Encounters Date Type Department Care Team (Late st Contact Info) Description 03/23/2025 4:30 PM EDT Office [facility] [address] [address] Caryl Martínez ARNP [address] [address] Health Maintenance Due Date Last Done Comments Pneumococcal Vaccine: Pediat rics (0 to 5 Years) and At-Risk Patients (6 to 64 Years) (1 of 2 - PCV) 02/19/1990 Hepatitis B Vaccine (1 of 3 - 19+ 3-dose series) 02/19 Influenza Vaccine (#1) 2024 Procedures Procedure Name Priority Date/Time Associated Diagnosis Comments BASIC METABOLIC PANEL Routine 11/25/2024 10:42 AM EST from Last 3 Months Results * Basic Metabolic Panel (11/25/2024 10:42 AM EST) Glucose 81 70 - 99 mg/dL [facility] BUN 19 6 - 24 mg/dL [facility] Creatinine 0.84 0.57 - 1.00 mg/dL [facility] eGFR CKD-EPI CR 2020 90 >59 mL/min/1.7 3 [facility] BUN/Creatinine Ratio 23 9 - 23 [facility] Sodium 141 134 - 144 mmol/L [facility] Potassium 4.4 3.5 - 5.2 mmol/L [facility] Chloride 102 96 - 106 mmol/L [facility] Bicarbonate (CO2) 23 20 - 29 mmol/L [facility] Calcium 9.6 8.7 - 10.2 mg/dL [facility] 11/25/2024 10:4 2 AM EST 11/25/2024 Caryl ZELAYA LAB BLOOD ORDERABLES Final Result [facility] [address] [place] [address] from Last 3 Months Insurance [employer] Care Teams Bill Cutter Relationship Specialty Start Date End Date Iglesia Tovar DO [address] [place] [address] PCP - General 11/27/20
== END 2025-01-18 10:27 | disposition home or self-care (01) ==
PROVIDERS: PCP Family Medicine; Visit Provider Advanced Practice Midwife
DX: Z01.419 Encounter for gynecological examination (general) (routine) without abnormal findings (principal)
CPT/HCPCS: 99396; 99459

== ENCOUNTER 2025-04-15 16:20 | Outpatient (REF) | payer OTHER, SELFPAY ==
--- OUTSIDE RECORDS SUMMARY | 2025-04-15 16:22 | XMS_ITS | Encounter Summary ---
Author Organization [facility] [place] Address [address] [facility] 200 [place] [address] Phone Care Team Providers Care Plum Packer Name Role Phone Iglesia Tovar DO Primary Care Provider [phone] Encounter Details Date Type Department Care Team (Late Contact Info) Description 03/28/2022 Documentation Only [facility] [address] [facility] [address] [place] [address] True Nesbitt MD [address] [place] [address] 4 [place] [address] Social History Tobacco Use Types Packs/Day Years [...] Care Team (Late st Contact Info) Description 09/26/2025 4:30 PM EST Office Visit [facility] [address] [address] Caryl Martínez ARNP 9047 [facility] 204 [place] [address] documented as of this encounter Visit Diagnoses Not on filedocumented in this encounter Care Teams Plum Packer Relationship Specialty Start Date End Date Iglesia Tovar DO [address] [place] [address] PCP - General 11/27/20 documented as of this encounter
== END 2025-04-15 16:21 | disposition home or self-care (01) ==
LOC: HO.MAMMO 16:20
PROVIDERS: PCP Family Medicine; Visit Provider Family Medicine
DX: Z12.31 Encounter for screening mammogram for malignant neoplasm of breast (principal)
CPT/HCPCS: 77063; 77067

== ENCOUNTER → 2025-04-15 16:30 | Outpatient (BNV) | payer OTHER, SELFPAY | PROVIDERS: PCP Family Medicine; Visit Provider Internal Medicine | DX: Z12.31 Encounter for screening mammogram for malignant neoplasm of breast (principal) | CPT/HCPCS: 77063; 77067 ==

== ENCOUNTER 2025-06-10 10:21 | Outpatient (REF) | payer OTHER, SELFPAY ==
--- NOTE | ~2025-06-10 | MM_ITS ---
EXAMINATIONS: 1. MM DIAGNOSTIC DIGITAL BREAST TOMOSYNTHESIS, RIGHT 2. Targeted ultrasound of the right breast CLINICAL INFORMATION: Callback from screening for right breast focal asymmetry in the upper-outer quadrant anterior depth. COMPARISON: Comparison made to multiple prior, most recent April 15, 2025, and most remote January 03, 2022. TECHNIQUE: Digital breast tomosynthesis is performed in full field ML 90 degrees view along with computer-aided detection (CAD). Synthesized 2D images are generated from the tomosynthesis. Spot compression tomosynthesis images were also obtained. FINDINGS: BREAST COMPOSITION: There are scattered areas of fibroglandular density (ACR BI-RADS breast composition Category b). RIGHT BREAST: Previously suggested focal asymmetry in the upper-outer quadrant is pliable with spot compression and most likely represented overlapping fibroglandular breast tissue. Local parenchyma on today's images is similar to multiple prior studies as far back as 2021. Targeted ultrasound of the right breast was performed at the location of the previously described mammographic finding. The survey performed throughout the periareolar region from 10:00 to 2:00 did not reveal suspicious sonographic findings. MM/MM tomosynthesis added views R IMPRESSION: RIGHT BREAST: Negative, no mammographic evidence of malignancy. Patient may return to routine screening mammogram expected in March 2026. ASSESSMENT: BI-RADS 1 - Negative RECOMMENDATION: 1 year F/U Results were provided to the patient at time of visit by the technologist. This patient's information was entered into a reminder system with a target due date for their next mammogram. Electronically signed by: Earline Sanabria MD 06/10/2025 11:16 AM EDT
--- OUTSIDE RECORDS SUMMARY | 2025-06-10 10:35 | XMS_ITS | Encounter Summary ---
Author Organization [facility] [place] Address [address] [facility] [address] [place] [address] Phone Care Team Providers Care Wildlife Officer Name Role Phone Iglesia Tovar DO Primary Care Provider [phone] Encounter Details Date Type Department Care Team (Late Contact Info) Description 03/28/2022 Documentation Only [facility] [address] [facility] [address] [place] [address] True Nesbitt MD [address] [place] [address] 4 [place] [address] Social History Tobacco Use Types Packs/Day Years [...] Visit [facility] 4517 [facility] [address] [place] [address] Caryl Martínez ARNP 3363 [facility] [address] [place] [address] documented as of this encounter Visit Diagnoses Not on filedocumented in this encounter Care Teams Wildlife Officer Relationship Specialty Start Date End Date Iglesia Tovar DO [address] [place] [address] PCP - General 11/27/20 documented as of this encounter
--- OUTSIDE RECORDS SUMMARY | 2025-06-10 10:35 | XMS_ITS ---
[place], [address], [facility] 06/02/2025 10:30:11 5 [id number] Therapeutic Exercise (1:1) completed Katty Stanley, PT [address], [place], [address], [facility] 05/30/2025 14:09:36 5 [id number]: Hot or Cold Pack completed Katty Stanley, PT [address], [place], [address], [facility] 05/30/2025 14:09:14 5 [id number] Therapeutic Exercise (1:1) completed Katty Stanley, PT [address], [place], [address], [facility] 05/25/2025 01:55:24 5 [id number]: Low complexity PT Eval completed Katty Stanley, PT [address], [place], [address], [facility] 05/25/2025 01:55:40 4 Sports Shoulder completed Concetta Florian MD [address] [facility], [place], [address], [facility] 09/10/2024 12:36:57 Imaging Results None recorded. Procedure Notes None recorded. Medical Equipment None Reported. Allergies No known drug allergies Medications Name Sig Start Date Stop Date Status Note LastModified by Organization Details LastModified Time Colace 100 mg capsule Take 1 capsule every day by oral route as needed. 2024 active Not Available Not Available Not Avai lable prednisone 10 mg tablet 01/14 completed Not Available Not Available Not Available doxycycline hyclate 100 mg capsule TAKE 1 CAPSULE BY MOUTH TWICE DAILY FOR 10 DAYS 06/24 completed Not Available Not Available Not Available aspirin 325 mg tablet Take 1 tablet every day by oral route for 14 days. 2024 active Not Available Not Available Not Avai lable senna 8.6 mg tablet TAKE 2 TABLETS BY MOUTH EVERY NIGHT AT BEDTIME FOR CONSTIPAT ION active Not Available Not Available No t Available sulfacetami de sodium (acne) 10 % lotion (suspension ) APPLY A THIN AMOUNT EVERY NIGHT AT BEDTIME DIRECTED AVOID EYES active Not Available Not Available No t Available acetaminoph en 500 mg tablet Take 2 tablets 3 times a day by oral route. 2024 active Not Available Not Available Not Avai lable butalbital- acetaminoph en-caffeine 50 mg-325 mg-40 mg tablet TAKE 2 TABLETS BY MOUTH EVERY DAY NEEDED FOR HEADACHE active Not Available Not Available No t Available metoclopram toan 5 mg tablet TAKE 1 TABLET BY MOUTH EVERY DAY NEEDED active Not Available Not Available No t Available Citrucel 500 mg tablet TAKE 1 TABLET BY MOUTH DAILY WITH FULL GLASS OF WATER active Not Available Not Available No t Available omeprazole 20 mg capsule,del ayed release TAKE 1 CAPSULE BY MOUTH DAILY FOR 14 DAYS active Not Available Not Available No t Available bisacodyl 5 mg tablet,zaina yed release TAKE 4 TABLETS BY MOUTH ONCE FOR 1 DAY. TAKE AT NOON THE DAY BEFORE YOUR COLONOSCO PY 09/10 completed Not Available Not Available Not Available mupirocin 2 % topical ointment APPLY TO SKIN TWICE A DAY 10/25 completed Not Available Not Available Not Available polyethylen e glycol 3350 17 gram/dose oral powder DISSOLVE AND DRINK 238GM ONCE DIRECTED BY [facility]OLOG[facility] DEPARTMEN T AT [facility] 10/25 completed Not Available Not Available Not Available naproxen 500 mg tablet TAKE 1 TABLET BY MOUTH TWICE DAILY FOR 5 DAYS 2024 active Not Available Not Available Not Avai lable oxycodone 5 mg tablet TAKE 1 TABLET BY MOUTH TWICE DAILY active Not Available Not Available No t Available Laxative (bisacodyl) 5 mg tablet TAKE 2 TABLETS BY MOUTH AT BEDTIME 10/25 completed Not Available Not Available Not Available Butalbital- APAP-Caffei ne Butalbita l-APAP-Ca ffeine 50-325-40 MG Tablet 02/02 completed Statu s: 'Curr ent'; Not Available Not Available Not Available hydrochloro thiazide 12.5 mg tablet active Not Available Not Available Not Available [facility] 75 mg disintegrat ing tablet DISSOLVE 1 TABLET ON THE TONGUE EVERY 24 HOURS NEEDED FOR MIGRAINE HEADACHE. NOT TO EXCEED 75 MG IN 24 HOURS active Not Available Not Available No t Available Voltaren Arthritis Pain 1 % topical gel APPLY 2 GRAMS TO THE AFFECTED AREA(S) BY TOPICAL ROUTE 4 TIMES PER DAY 2024 active Not Available Not Available Not Jesseai yumi Haloette 0.12 mg-0.015 mg/24 hr vaginal ring INSERT 1 RING VAGINALLY AND LEAVE IN PLACE FOR 3 WEEKS OF 4 WEEK CYCLE ACCORDING TO INSTRUCTI ONS. REPORT ANY BLOOD PRESSURE ELEVATION S active Not Available Not Available No t Available Vitals Date Recorded Body temperature Provider Name a nd Address Organization Details Last Updated DateTime 05/31/2025 97.9 [degF] Tray Anderson PA-C [address], [place], [address], [place] [facility] 05/31/2025 15:41:09 Date Recorded Body height Body mass index (BMI) Body weight Provider Name and Address Organization Details Last Updated DateTime 05/31/2025 170.18 cm 25.1 kg/m2 03101.78 g GRADY Aj [facility] 05/31/2025 15:35:57 Social History None recorded. Functional Status None recorded. Mental Status None recorded. Family History Nothing Reported. Medical History Condition Response Allergies/Hayfever N Coronary Artery Disease N Anxiety/Depression N Breathing or lung disorders N Emphysema N Nerve Disorders N Thyroid Problems N COPD N Pacemaker N Anemia N Kidney/Bladder Problems N Vascular Disease N Heart Trouble N Heart Attack ([place]) N Gastrointestinal Disease N Cholesterol N Diabetes N Autoimmune disease N Bleeding Disorder N Inflammatory Joint disease N Orthotics N Arthritis N Seizures/Epilepsy N Blood Clot N AIDS/HIV N Congestive Heart Failure (CHF) N Acid Reflux (GERD) N Cancer N Stroke N Asthma N Circulation Problems N Peripheral Vascular Disease N Sleep Apnea N Hepatitis N Heart Disease N Rheumatoid Arthritis N Arrhythmia N Pulmonary Embolism N Headaches Y Fibromyalgia N Hypertension Y Osteoporosis N Gynecological HistoryNo gynecological history recorded. Obstetrics History GPAL:G 0 P 0 0 0 0 Past Encounters Encounter ID Performer Location Encounter Start Date Encounter Closed Date Diagnosis/Indication Diagnosis SNOMED-CT Code Diagnosis ICD10 Code Diagnosis Note [id number] TREY Mason 3rd floor [address] [place] [address] 02/03/2024 15:55:14 02/03/2024 16:44:48 Mallet finger of left hand [id number] 00503 M20.012 I reviewed my findings with the patient today. She may discontinu e her nighttime splint and transition to more aggressive range of motion of her small finger. She may follow-up symptomati yahaira going forward, but instructed to contact our office if there is any issues. I also reviewed risk of posttrauma tic arthritis of this joint as well [id number] MD Bro Benítez 2nd floor [address] [place], [place] [address] 06/24/2024 14:36:33 07/21/2024 14:26:43 Pain of right shoulder joint 1111361889 [id number] M25.838 [id number] MD Bro Benítez 2nd floor [address] [place], [place] [address] 08/12/2024 14:19:14 09/02/2024 13:36:30 Pain of right shoulder joint 0258980706 [id number] M25.816 [id number] MD Bro Benítez 2nd floor [address] [place], [place] [address] 09/10/2024 11:27:26 10/05/2024 08:53:14 Impingement syndrome of right shoulder region 9181084154 91738 M75.41 [id number] MD Bro Benítez 2nd [facility] [address] [place], [place] [address] 10/25/2024 14:43:27 11/23/2024 07:31:14 Impingement syndrome of right shoulder region 9363227962 84432 M75.41 [id number] MD SUKUMAR Benítez 2nd floor [address] [place], [place] [address] 01/14/2025 15:15:34 01/31/2025 10:26:26 Full thickness rotator cuff tear 152199317 M75.206 [id number] MD SUKUMAR Benítez 2[address] [facility] [address] [place] [address] 05/09/2025 15:02:01 05/19/2025 16:05:55 Pain of right shoulder joint 5969867680 [id number] M25.712 [id number] TREY Johnsone 2nd floor [address] [place] [address] 05/31/2025 15:32:47 06/09/2025 09:31:42 History of operative procedure on shoulder 042604080 Z98.908 [id number] Katty Stanley, PT [facility] [address] [place] [address] 05/24/2025 15:17:13 05/24/2025 16:19:27 Impingement syndrome of right shoulder region [id number] 00695 M75.41 [id number] Katty Stanley, PT [facility] [address] [place] [address] 05/30/2025 12:52:57 05/30/2025 15:06:07 Impingement syndrome of right shoulder region [id number] M75.41 [id number] Prosper Dias, SCREEN REPAIRER CRUSHER [facility] [address] [place] [address] 06/02/2025 14:25:22 06/02/2025 15:57:35 Impingement syndrome of right shoulder region 4972440468 46520 M75.41 [id number] Katty Stanley, PT [facility] [address] [place] [address] 06/07/2025 09:31:18 06/07/2025 10:01:53 Impingement syndrome of right shoulder region 4123335625 83016 M75.41 [id number] Katty Stanley, PT [facility] [address] [place] [address] 06/09/2025 09:26:27 06/09/2025 13:04:53 Impingement syndrome of right shoulder region [id number] M75.41 Health Concerns Section Related Observation LastModified by Organization Detai ls LastModified Time None Recorded Concern Status LastModified by Organization Details LastModified Time None Recorded Advance Directives Directive None Recorded Payers Insurance Date Sequence Insurance Name Policy Number Policy Sahni Covered Member ID Sahni Member ID Guarantor Name 10/22/2024 1 [facility] [id number] Melba Quevedo [id number] Melba Quevedo 09/10/2024 [employer] Melba Quevedo Notes Date Note Type Note Provider Name and Address Organization Details Recorded Time 05/30/2025 text/html Patient reports that she is noticing slight improvements each day. Katty Stanley, PT [address], [place], [address], [facility] 05/30/2025 14:13:46 05/31/2025 text/html Surgery: Right shoulder SAD DCE, 05/17/2025 Interval History: Melba returns today in follow-up now 2 weeks out from surgery as above, doing fairly well. Has been participating in PT since 1 week postop and has appropriately weaned from his sling. Weaning from narcotic medications. No issues with incisions. No numbness or tingling in arm or hand. Past family, medical, social history and review of systems have been reviewed and updated on the medical history sheet saved to the patient's chart. A 12-point review of systems is negative x12 except as noted above and/or on the medical history sheet. Examination: Pleasant 40-year-old woman in no acute distress. On exam of the Right upper extremity, arthroscopic portal incisions are healing nicely. No significant swelling or bruising. No evidence for Bruno deformity. Active assist forward elevation 110, external rotation 70, internal rotation L1. No strength testing performed today in light of recent surgery. Sensation intact in axillary and LABC distributions. Fires EPL, FPL and intrinsics. Hand is warm and well perfused. Imaginv of the right shoulder show a good decompression and distal clavicle excison. 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 Doing fairly well thus far. Plan: Copies of the therapy prescription and protocol given to the patient and scanned into the patient's chart for future reference if needed. Therapy will focus on range of motion until week 6, at which point we will incorporate strengthening exercises. The patient has been asked to avoid any heavy lifting/pushing/pul ling/carrying with the operative arm until the 6-week eun. The patient will follow up me to ensure that full range of motion has been achieved. She will be out of work until then. [employer] [facility] [employer] speech recognition outside upholsterer software was used to create portions of this document. An attempt at proofreading has been made to minimize errors. Please call for corrections. Tray Anderson PA-C [address], [place], [address], [facility] 05/31/2025 16:16:16 06/02/2025 text/html Patient reports doing well today. She was doing her HEP yesterday and noticing increased range with AAROM flexion in supine. Prosper Dias, SCREEN REPAIRER CRUSHER [address], [place], [address], [facility] 06/02/2025 15:41:15 06/07/2025 text/html Patient reports that her shoulder is gradually improving with less pain and increasing mobility. He primary complaint is that she cannot sleep well, as she is used to sleeping on her R side & is unable to tolerate that yet. Katty Stanley, PT [address], [place], [address], [facility] 06/07/2025 14:10:33 06/09/2025 text/html Patient reports that she has been sore past couple of days. Katty Stanley, PT [address], [place], [address], [facility] 06/09/2025 20:47:02 OBGyn Episode No OBEpisode recorded.
== END 2025-06-10 10:22 | disposition home or self-care (01) ==
LOC: HO.MAMMO 10:21
PROVIDERS: PCP Family Medicine; Visit Provider Nurse Practitioner
DX: R92.8 Other abnormal and inconclusive findings on diagnostic imaging of breast (principal)
CPT/HCPCS: 76642; 77061; 77065

== ENCOUNTER → 2025-06-10 11:00 | Outpatient (BNV) | payer OTHER, SELFPAY | PROVIDERS: PCP Family Medicine; Visit Provider Radiology Body Imaging | DX: R92.8 Other abnormal and inconclusive findings on diagnostic imaging of breast (principal) | CPT/HCPCS: 76642; 77061; 77065 ==

== ENCOUNTER → 2025-09-01 15:49 | Outpatient (AMB) | payer OTHER, SELFPAY ==
--- NOTE | 2025-09-01 16:24 | A.OFFVIS_ITS ---
Intake Visit Reasons: 6mnth Allergies No Known Allergies Allergy (Verified 01/18/25 09:39) HPI Comments Details: The patient is a 40-year-old female presenting with a headache and suspicion of early menopause. She experienced a headache on the day of the visit that persisted despite medication use, and she reports accompanying nausea. The patient has a history of menstrual migraines, but they are not consistently present. Menstrual irregularities have prompted concern about early menopause, especially with the reported absence of menstruation and associated symptoms suggestive of menopausal onset. She plans to consult her new primary care doctor about these issues following the half-way of her former physician. [facility] Medical History Post-COVID chronic shortness of breath Headache Allergic rhinitis HTN (hypertension) Surgical History [place] teeth removed Hx of section Family History Father HTN (hypertension) Mother No problems noted. Maternal Grandmother CVD (cardiovascular disease) Maternal Grandfather Stroke Social History Household Members: Spouse Housing: House Alcohol intake: current Alcohol intake frequency: holidays/special occasions only Patient Tobacco Use Status: Former Tobacco user Years Smoked: 10 +/- Gender identity: Female Female Reproductive History Menstrual Age of Menarche: 12 Review of Systems Const Details: - Neurological: Reports headache - Gastrointestinal: Reports nausea - Reproductive: Reports absence of menstruation, reports symptoms suggestive of menopause Assessment & Plan Assessment & Plan (1) Migraine: Comment: Meds tried: Triptans (pt reported side effects), Butalbutal. Code(s): G43.909 - Migraine, unspecified, not intractable, without status migrainosus Category: Medical Qualifiers: Migraine type: migraine (< 15 days per month) without aura Status migrainosus presence: without status migrainosus Intractability: not intractable Qualified Code(s): G43.009 - Migraine without aura, not intractable, without status migrainosus (2) Menstrual migraine: Code(s): G43.829 - Menstrual migraine, not intractable, without status migrainosus Category: Medical Qualifiers: Status migrainosus presence: without status migrainosus Intractability: not intractable Qualified Code(s): G43.829 - Menstrual migraine, not intractable, without status migrainosus Plan Impression: 1. Migraine without aura 2. Menstrual migraine 3. Premenopausal state Recommendations: 1. For now she was managing headaches while with 10-12 Fioricet every month. If situation changes further management can be discussed. Coding Level of Care Code Est Pt Level 4 (54849) Diagnoses Migraine without aura and without status migrainosus, not intractable G43.009 Migraine type: migraine (< 15 days per month) without aura Status migrainosus presence: without status migrainosus Intractability: not intractable Menstrual migraine without status migrainosus, not intractable G43.829 Status migrainosus presence: without status migrainosus Intractability: not intractable
== END ==
LOC: HO.HSM 15:49
PROVIDERS: PCP Family Medicine; Referring Provider Family Medicine; Visit Provider Psychiatry & Neurology Neurology
DX: G43.009 Migraine without aura, not intractable, without status migrainosus (principal); G43.829 Menstrual migraine, not intractable, without status migrainosus
CPT/HCPCS: 99214

== ENCOUNTER → 2025-09-01 15:49 | Outpatient (BNVA) | payer OTHER, SELFPAY | PROVIDERS: PCP Family Medicine; Referring Provider Family Medicine; Visit Provider Psychiatry & Neurology Neurology | DX: G43.009 Migraine without aura, not intractable, without status migrainosus (principal); G43.829 Menstrual migraine, not intractable, without status migrainosus | CPT/HCPCS: 99212 ==